=== PATIENT | female | born 1980 | race Two or more races ===

== ENCOUNTER 2020-07-05 10:49 | Inpatient (IN) | payer SELFPAY ==
[~2020-07-05] VITALS: Ht 154.9 cm; Wt 61.9 kg
[2020-07-05] MEDS ORDERED: cefTRIAXone IV Push 1 GM VIAL. IVP ONE ×3 (12:15→23:48)
[2020-07-05] MEDS ORDERED: IV NORMAL SALINE 1000ML BAG 1,000 ML IV SCH ×2 (12:15→16:45)
[2020-07-05 12:37] LABS: BILIRUBIN,URINE SMALL (NEG); CLARITY,URINE CLEAR; COLOR,URINE AMBER; NITRITE,URINE NEGATIVE (NEG); PROTEIN,URINE 30 mg/dL (NEG-TRACE)
[2020-07-05 12:41] LABS: CALCIUM 8.5 mg/dL (8.5-10.1); CREATININE 1.3 mg/dL (0.6-1.0); GFR 45.6; POTASSIUM 3.3 mmol/L (3.5-5.1)
[2020-07-05 12:47] LABS: ALBUMIN 3.2 g/dL (3.4-5.0); ALBUMIN/GLOBULIN RATIO 0.8 (1.0-1.7); TOTAL BILIRUBIN 1.6 mg/dL (0.2-1.0)
[2020-07-05 12:56] LABS: BACTERIA,URINE FEW /HPF (0-FEW); WBC,URINE >40 /HPF (0-4)
[2020-07-05 13:01] LABS: BASO # 0.2 x10^3/uL (0.0-0.2); BASO % 1 % (0-3); EOS % 0 % (0-3); HEMATOCRIT 29.7 % (36.0-47.0); HEMOGLOBIN 9.7 g/dL (12.0-15.5); LYMPH # 0.7 x10^3/uL (1.0-4.8); LYMPH % 3 % (24-48); MEAN CORPUSCULAR HEMOGLOBIN 26 pg (25-35); MEAN CORPUSCULAR HGB CONC 33 g/dL (31-37); MEAN CORPUSCULAR VOLUME 80 fL (79-100); MONO # 2.5 x10^3/uL (0.0-1.1); MONO % 9 % (0-9); NEUT # 23.4 x10^3/uL (1.8-7.7); NEUT % 87 % (31-73); PLATELET COUNT 254 x10^3/uL (140-400); RED BLOOD COUNT 3.69 x10^6/uL (3.50-5.40); RED CELL DISTRIBUTION WIDTH 16.1 % (11.5-14.5); WHITE BLOOD COUNT 26.7 x10^3/uL (4.0-11.0)
[2020-07-05] MEDS ORDERED: IV NORMAL SALINE 1000ML BAG 1,000 ML IV ONE (13:30)
[2020-07-05 13:40] LABS: U PREG PATIENT NEGATIVE (NEG)
[2020-07-05] MEDS ORDERED: IOHEXOL 240 MG/ML 50ML VIAL. PO ONE (14:00)
--- NOTE | 2020-07-05 14:10 | PHYS DOC ---
Past Medical History Past Medical History: No Pertinent History Past Surgical History: Tubal ligation Smoking Status: Current Some Day Smoker Alcohol Use: None General Adult EDM: Chief Complaint: ABDOMINAL PAIN HPI: HPI: Patient is a 39 year old female who presented to ER due to left-sided flank pain with frequent urination for 10 days. She says she was seen by her doctor somewhere, prescribed Bactrim DS. Patient has taken this medication for 7 days already but did not get any better. Patient complains of more back pain and flank pain so she came in for evaluation. Patient is a Czech speaking, history was taken through [employer]. Review of Systems: Review of Systems: Constitutional: Denies fever or chills. [] Eyes: Denies change in visual acuity. [] HENT: Denies nasal congestion or sore throat. [] Respiratory: Denies cough or shortness of breath. [] Cardiovascular: Denies chest pain or edema. [] GI: Positive for abdominal pain, no nausea vomiting, no diarrhea : Positive for urinary frequency and urgency, flank pain. [] Musculoskeletal: Positive for left-sided back pain. [] Integument: Denies rash. [] Neurologic: Denies headache, focal weakness or sensory changes. [] Endocrine: Denies polyuria or polydipsia. [] Lymphatic: Denies swollen glands. [] Psychiatric: Denies depression or anxiety. [] Heart Score: C/O Chest Pain: N/A Risk Factors: Risk Factors: DM, Current or recent (<one month) smoker, HTN, HLP, family history of CAD, obesity. Risk Scores: Score 0 - 3: 2.5% MACE over next 6 weeks - Discharge Home Score 4 - 6: 20.3% MACE over next 6 weeks - Admit for Clinical Observation Score 7 - 10: 72.7% MACE over next 6 weeks - Early Invasive Strategies Current Medications: Current Medications Medications (Trade) Dose Ordered Sig/Lan Start Time Stop Time Status Last Admin Dose Admin Ceftriaxone Sodium (Rocephin) 1 gm 1X ONCE 07/05/20 12:15 07/05/20 12:40 DC 07/05/20 12:59 1 GM Iohexol (Omnipaque 240 Mg/ml) 30 ml 1X ONCE 07/05/20 14:00 07/05/20 14:01 DC Sodium Chloride 1,000 ml @ 1,000 mls/hr 1X ONCE 07/05/20 13:30 07/05/20 14:29 07/05/20 13:44 1,000 MLS/HR Allergies: Allergies: Allergies Coded Allergies Type Severity Reaction Last Updated Verified No Known Drug Allergies 07/05/20 No Physical Exam: PE: Constitutional: Well developed, well nourished, no acute distress, non-toxic appearance. [] HENT: Normocephalic, atraumatic, bilateral external ears normal, oropharynx moist, no oral exudates, nose normal. [] Eyes: PERRLA, EOMI, conjunctiva normal, no discharge. [] Neck: Normal range of motion, no tenderness, supple, no stridor. [] Cardiovascular:Heart rate regular rhythm, no murmur [] Lungs & Thorax: Bilateral breath sounds clear to auscultation [] Abdomen: Bowel sounds normal, soft, no tenderness, no masses, no pulsatile masses. [] Skin: Warm, dry, no erythema, no rash. [] Back: No tenderness, no CVA tenderness. [] Extremities: No tenderness, no cyanosis, no clubbing, ROM intact, no edema. [] Neurologic: Alert and oriented X 3, normal motor function, normal sensory function, no focal deficits noted. [] Psychologic: Affect normal, judgement normal, mood normal. [] Current Patient Data: Labs: Laboratory Tests Test 07/05/20 12:17 07/05/20 12:20 White Blood Count 26.7 x10^3/uL (4.0-11.0) H Red Blood Count 3.69 x10^6/uL (3.50-5.40) Hemoglobin 9.7 g/dL (12.0-15.5) L Hematocrit 29.7 % (36.0-47.0) L Mean Corpuscular Volume 80 fL (79-100) Mean Corpuscular Hemoglobin 26 pg (25-35) Mean Corpuscular Hemoglobin Concent 33 g/dL (31-37) Red Cell Distribution Width 16.1 % (11.5-14.5) H Platelet Count 254 x10^3/uL (140-400) Neutrophils (%) (Auto) 87 % (31-73) H Lymphocytes (%) (Auto) 3 % (24-48) L Monocytes (%) (Auto) 9 % (0-9) Eosinophils (%) (Auto) 0 % (0-3) Basophils (%) (Auto) 1 % (0-3) Neutrophils # (Auto) 23.4 x10^3/uL (1.8-7.7) H Lymphocytes # (Auto) 0.7 x10^3/uL (1.0-4.8) L Monocytes # (Auto) 2.5 x10^3/uL (0.0-1.1) H Eosinophils # (Auto) 0.0 x10^3/uL (0.0-0.7) Basophils # (Auto) 0.2 x10^3/uL (0.0-0.2) Platelet Estimate Pending Sodium Level 134 mmol/L (136-145) L Potassium Level 3.3 mmol/L (3.5-5.1) L Chloride Level 102 mmol/L (98-107) Carbon Dioxide Level 22 mmol/L (21-32) Anion Gap 10 (6-14) Blood Urea Nitrogen 14 mg/dL (7-20) Creatinine 1.3 mg/dL (0.6-1.0) H Estimated GFR (Cockcroft-Gault) 45.6 BUN/Creatinine Ratio 11 (6-20) Glucose Level 106 mg/dL (70-99) H Calcium Level 8.5 mg/dL (8.5-10.1) Total Bilirubin 1.6 mg/dL (0.2-1.0) H Aspartate Amino Transferase (AST) 39 U/L (15-37) H Alanine Aminotransferase (ALT) 77 U/L (14-59) H Alkaline Phosphatase 139 U/L (46-116) H Total Protein 7.0 g/dL (6.4-8.2) Albumin 3.2 g/dL (3.4-5.0) L Albumin/Globulin Ratio 0.8 (1.0-1.7) L Lipase 44 U/L (73-393) L Urine Collection Type Unknown Urine Color Yadira Urine Clarity Clear Urine pH 6.0 (<5.0-8.0) Urine Specific [place] 1.010 (1.000-1.030) Urine Protein 30 mg/dL (NEG-TRACE) Urine Glucose (UA) Negative mg/dL (NEG) Urine Ketones (Stick) Negative mg/dL (NEG) Urine Blood Large (NEG) Urine Nitrite Negative (NEG) Urine Bilirubin Small (NEG) Urine Urobilinogen Dipstick 1.0 mg/dL (0.2 mg/dL) Urine Leukocyte Esterase Large (NEG) Urine RBC 3-5 /HPF (0-2) Urine WBC >40 /HPF (0-4) Urine Squamous Epithelial Cells Mod /LPF Urine Bacteria Few /HPF (0-FEW) Urine Test Negative (NEG) Laboratory Tests 07/05/20 12:17 Laboratory Tests 07/05/20 12:17 Vital Signs: Vital Signs Date Time Temp Pulse Resp B/P (MAP) Pulse Ox O2 Delivery O2 Flow Rate FiO2 07/05/20 13:32 92 18 76/45 (55) 100 07/05/20 12:24 98.4 98.4 07/05/20 11:48 Room Air EKG: EKG: [] Radiology/Procedures: Radiology/Procedures: [facility] [address] [place], [place] [id number] IMAGING REPORT Signed PATIENT: CRISTIANA NICE ACCOUNT: [id number] : 1980 LOCATION: ER AGE: 39 SEX: F EXAM STATUS: REG ER ORD. PHYSICIAN: SAMI MOY DO REASON: flank pain, OMNI 240 PO 30 MLS PROCEDURE: CT ABD PEL W/ORAL CONTRST ONLY CT abdomen and pelvis with oral contrast only. HISTORY: Flank pain. PQRS statement: CT scans at this facility use dose reduction including either automated exposure control, iterative reconstructions, and /or weight based radiation dosing via mA and kV modification when appropriate to reduce radiation dose to as low as reasonably achievable. Abdomen findings: Asymmetric atelectasis left lower lobe as well as some nodular linear densities and groundglass density at the posterior basal left lower lobe adjacent diaphragm from atelectasis or perhaps early pneumonia. Gallbladder packed with gallstones. Adrenals, spleen, pancreas, liver and right kidney are unremarkable. Left kidney is mildly atrophic. There is a 2 mm left renal lower pole calculus. There is mild left perinephric edema and peripelvic and periureteral edema, no obstructive urinary calculi. Left kidney may be mildly atrophic. Appendix is negative. No obstruction or inflammation the GI tract. There is mild left periaortic adenopathy adjacent of the renal vessels measuring up to 1.5 cm. No abdominal free fluid. Pelvis findings: Uterus somewhat prominent in size. At the left adnexa there is a 2.5 cm round soft tissue density is possible this represents the ovary although this is asymmetrically larger and an underlying mass cannot be excluded. No bladder calculi. Rectum and bones are unremarkable. IMPRESSION: 1. Left perinephric and renal edema as well as peripelvic and periureteral edema. No significant hydronephrosis. This may indicate pyelonephritis. No obstructing urinary calculus evident. Mild retroperitoneal adenopathy adjacent of the left renal vessels may be reactive measuring up to 1.5 cm in size. Attention on follow-up may be of benefit to document that this resolves. 2. 2 mm nonobstructing left renal pelvis. 3. Asymmetric left lower lobe posterior basilar opacity adjacent of the diaphragm may be asymmetric atelectasis versus early lobar pneumonia. Follow-up chest imaging in 3 months is advised to document this resolves. 4. Cholelithiasis. 5. Asymmetric 2.5 cm round soft tissue density left adnexa could be asymmetric positioning of the ovary versus an underlying mass. This could be further assessed with pelvic sonography. 6. Appendix is negative. Electronically signed by: Deidre Medina MD (07/05/2020 3:28 PM) [id number] DICTATED and SIGNED BY: DEIDRE MEDINA MD DATE: 07/05/20 [id number] 0 Course & Med Decision Making: Course & Med Decision Making Pertinent Labs and Imaging studies reviewed. (See chart for details) Patient is a 39-year-old female who presented to ER due to flank pain with frequency of urination for 10 days. Patient was found to have acute pyelonephritis. Patient was given IV fluid and IV Rocephin in ER, patient will be admitted to hospital for further evaluation and treatment, discussed with the hospitalist on-call Dr. Saenz who agreed to meet the patient. Dragon Disclaimer: Sherin Disclaimer: This electronic medical record was generated, in whole or in part, using a voice recognition dictation system. Departure Departure Impression: Primary Impression: Acute pyelonephritis Disposition: ADMITTED INPATIENT Admitting Physician: [facility] (Dr. Saenz) Condition: STABLE Referrals: NO PCP (PCP) SAMI MOY DO Jul 05, 2020 14:10
[2020-07-05 14:42] LABS: % BANDS 12 % (0-9); % LYMPHS 1 % (24-48); % MONOS 11 % (0-10); % SEGS 76 % (35-66); PLT ESTIMATE ADEQUATE (ADEQUATE)
--- NOTE | 2020-07-05 15:30 | RAD ---
CT abdomen and pelvis with oral contrast only. HISTORY: Flank pain. PQRS statement: CT scans at this facility use dose reduction including either automated exposure cont rol, iterative reconstructions, and /or weight based radiation dosing via mA and kV modification when appropriate to reduce radiation dose to as low as reasonably achievable. Abdomen findings: Asymmetric atelectasis left lower lobe as well as some nodular linear densities and groundglass density at the posterior basal left lower lobe adjacent diaphragm from atelectasis or pe rhaps early pneumonia. Gallbladder packed with gallstones. Adrenals, spleen, pancreas, liver and righ t kidney are unremarkable. Left kidney is mildly atrophic. There is a 2 mm left renal lower pole calc ulus. There is mild left perinephric edema and peripelvic and periureteral edema, no obstructive urin ricardo calculi. Left kidney may be mildly atrophic. Appendix is negative. No obstruction or inflammation the GI tract. There is mild left periaortic adenopathy adjacent of the renal vessels measuring up to 1.5 cm. No abdominal free fluid. Pelvis findings: Uterus somewhat prominent in size. At the left adnexa there is a 2.5 cm round soft t issue density is possible this represents the ovary although this is asymmetrically larger and an und erlying mass cannot be excluded. No bladder calculi. Rectum and bones are unremarkable. IMPRESSION: 1. Left perinephric and renal edema as well as peripelvic and periureteral edema. No significant hydr onephrosis. This may indicate pyelonephritis. No obstructing urinary calculus evident. Mild retroperi toneal adenopathy adjacent of the left renal vessels may be reactive measuring up to 1.5 cm in size. Attention on follow-up may be of benefit to document that this resolves. 2. 2 mm nonobstructing left renal pelvis. 3. Asymmetric left lower lobe posterior basilar opacity adjacent of the diaphragm may be asymmetric a telectasis versus early lobar pneumonia. Follow-up chest imaging in 3 months is advised to document t his resolves. 4. Cholelithiasis. 5. Asymmetric 2.5 cm round soft tissue density left adnexa could be asymmetric positioning of the ova ry versus an underlying mass. This could be further assessed with pelvic sonography. 6. Appendix is negative. Electronically signed by: Joaquín Medina MD (07/05/2020 3:28 PM) [id number]
[2020-07-05] MEDS ORDERED: MORPHINE SULFATE 4 MG/ML VIAL. IV ONE (15:45)
[2020-07-05] MEDS ORDERED: KETOROLAC 15 MG/ML VIAL. IVP ONE (16:30)
[2020-07-05] MEDS ORDERED: ONDANSETRON PF 4 MG/2 ML VIAL. IV PRN (16:45)
[2020-07-05] MEDS ORDERED: MORPHINE SULFATE 2 MG/ML VIAL. IV PRN (16:45)
--- NOTE | 2020-07-05 18:08 | PDOC1 ---
History and Physical Date of Admission Date of Admission DATE: 07/05/20 TIME: 18:07 Identification/Chief Complaint Chief Complaint flank pain, chills x 36 hrs History of Present Illness History of Present Illness 39 year old female, who presented to ER due to left-sided flank pain with frequent urination for 10 days. she was seen by her doctor prescribed Bactrim DS. ct c/w acute pyelo, wbc 26.7 pos cva tenderness left lower lobe posterior basilar opacity adjacent of the diaphragm may be asymmetric atelectasis versus early lobar pneumonia. on ct Patient has taken this medication for 7 days did not get any better. //complains of more back pain and flank pain Mongolian speaking, history was taken through [employer]. Past Medical History Past Medical History Past Medical History Past Medical History: No Pertinent History Past Surgical History: Tubal ligation Smoking Status: Current Some Day Smoker Alcohol Use: None FHX COPD Family History Family History: Chronic Bronchitis, Hypertension Social History Smoke: <1 pack per day ALCOHOL: occassional Drugs: None Current Problem List Problem List Problems Medical Problems: (1) Acute pyelonephritis Status: Acute Current Medications Current Medications Current Medications Sodium Chloride 1,000 ml @ 1,000 mls/hr Q1H IV Last administered on 07/05/20at 13:00; Start 07/05/20 at 12:15; Stop 07/05/20 at 13:14; Status DC Ceftriaxone Sodium (Rocephin) 1 gm 1X ONCE IVP Last administered on 07/05/20at 12:59; Start 07/05/20 at 12:15; Stop 07/05/20 at 12:40; Status DC Sodium Chloride 1,000 ml @ 1,000 mls/hr 1X ONCE IV Last administered on 07/05/20at 13:44; Start 07/05/20 at 13:30; Stop 07/05/20 at 14:29; Status DC Iohexol (Omnipaque 240 Mg/ml) 30 ml 1X ONCE PO Last administered on 07/05/20at 14:40; Start 07/05/20 at 14:00; Stop 07/05/20 at 14:01; Status DC Morphine Sulfate (Morphine Sulfate) 4 mg 1X ONCE IV Last administered on 07/05/20at 15:52; Start 07/05/20 at 15:45; Stop 07/05/20 at 15:46; Status DC Ketorolac Tromethamine (Toradol 15mg Vial) 15 mg 1X ONCE IVP Last administered on 07/05/20at 17:39; Start 07/05/20 at 16:30; Stop 07/05/20 at 16:31; Status DC Ondansetron HCl (Zofran) 4 mg PRN Q8HRS PRN IV NAUSEA/VOMITING; Start 07/05/20 at 16:45; Stop 07/06/20 at 16:44 Morphine Sulfate (Morphine Sulfate) 2 mg PRN Q2HR PRN IV PAIN; Start 07/05/20 at 16:45; Stop 07/06/20 at 16:44 Sodium Chloride 1,000 ml @ 100 mls/hr Q10H IV ; Start 07/05/20 at 16:45; Stop 07/06/20 at 16:44 Ceftriaxone Sodium (Rocephin) 1 gm Q24H IVP ; Start 07/06/20 at 12:00 Allergies Allergies: Coded Allergies: No Known Drug Allergies (Unverified , 07/05/20) ROS General: YES: Chills, Fatigue PSYCHOLOGICAL ROS: YES: Anxiety; No: Behavioral Disorder, Concentration difficultie, Decreased libido, Depression, Disorientation, Hallucinations, Hostility, Irritablity, Memory difficulties, Mood Swings, Obsessive thoughts, Physical abuse, Sexual abuse, S leep disturbances, Suicidal ideation, Other Eyes: No Blurry vision, No Decreased vision, No Double vision, No Dry eyes, No Excessive tearing, No Eye Pain, No Itchy Eyes, No Loss of vision, No Photophobia, No Scotomata, No Uses contacts, No Uses glasses, No Other HEENT: No: Heacaches, Visual Changes, Hearing change, Nasal congestion, Nasal discharge, Oral lesions, Sinus pain, Sore Throat, Epistaxis, Sneezing, Snoring, Tinnitus, Vertigo, Vocal changes, Other ALLERGY AND IMMUNOLOGY: No: Hives, Insect Bite Sensitivity, Itchy/Watery Eyes, Nasal Congestion, Post Nasal Drip, Seasonal Allergies, Other Hematological and Lymphatic: No: Bleeding Problems, Blood Clots, Blood Transfus ions, Brusing, Night Sweats, Pallor, Swollen Lymph Nodes, Other ENDOCRINE: No: Breast Changes, Galactorrhea, Hair Pattern Changes, Hot Flashes, Malaise/lethargy, Mood Swings, Palpitations, Polydipsia/polyuria, Skin Changes, Temperature Intolerance, Unexpected Weight Changes, Other Breast: No New/Changing Breast Lumps, No Nipple changes, No Nipple discharge, No Other Respiratory: No: Cough, Hemoptysis, Orthopnea, Pleuritic Pain, Shortness of b reath, SOB with excertion, Sputum Changes, Stridor, Tachypnea, Wheezing, Other Cardiovascular: No Chest Pain, No Palpitations, No Orthopnea, No Paroxysmal Noc. Dyspnea, No Edema, No Lt Headedness, No Other Gastrointestinal: Yes Nausea; No Vomiting, No Abdominal Pain, No Diarrhea, No Constipation, No Melena, No Hematochezia, No Other Genitourinary: YES Dysuria, YES Urgency, YES Flank Pain Musculoskeletal: No Gait Disturbance, No Joint Pain, No Joint Stiffness, No Joint Swelling, No Muscle Pain, No Muscular Weakness, No Pain In:, No Swelling In:, No Other Neurological: No Behavorial Changes, No Bowel/Bladder ControlChng, No Confusion, No Dizziness, No Gait Disturbance, No Headaches, No Impaired Coord/balance, No Memory Loss, No Numbness/Tingling, No Seizures, No Speech Problems, No Tremors, No Visual Changes, No Weakness, No Other Skin: No Dry Skin, No Eczema, No Hair Changes, No Lumps, No Mole Changes, No Mottling, No Nail Changes, No Pruritus, No Rash, No Skin Lesion Changes, No Other, No Acne Physical Exam General: Alert, Oriented X3, Cooperative, No acute distress, mild distress HEENT: PERRLA, EOMI, Mucous membr. moist/pink Lungs: Clear to auscultation, Normal air movement Heart: RRR Breasts: Not examined Abdomen: Normal bowel sounds, Soft, Other (MILD TENDERNESS) Rectal Exam: not examined PELVIC: Examination not indicated Extremities: No clubbing, No cyanosis, No edema Neuro: Normal speech, Cranial nerves 3-12 NL Psych/Mental Status: Mental status NL, Mood NL Vitals Vitals Vital Signs Date Time Temp Pulse Resp B/P (MAP) Pulse Ox O2 Delivery O2 Flow Rate FiO2 07/05/20 16:32 110 18 109/58 (75) 99 07/05/20 14:02 Room Air 07/05/20 12:24 98.4 98.4 Labs Labs Laboratory Tests Test 07/05/20 12:17 07/05/20 12:20 07/05/20 14:17 White Blood Count 26.7 x10^3/uL (4.0-11.0) Red Blood Count 3.69 x10^6/uL (3.50-5.40) Hemoglobin 9.7 g/dL (12.0-15.5) Hematocrit 29.7 % (36.0-47.0) Mean Corpuscular Volume 80 fL (79-100) Mean Corpuscular Hemoglobin 26 pg (25-35) Mean Corpuscular Hemoglobin Concent 33 g/dL (31-37) Red Cell Distribution Width 16.1 % (11.5-14.5) Platelet Count 254 x10^3/uL (140-400) Neutrophils (%) (Auto) 87 % (31-73) Lymphocytes (%) (Auto) 3 % (24-48) Monocytes (%) (Auto) 9 % (0-9) Eosinophils (%) (Auto) 0 % (0-3) Basophils (%) (Auto) 1 % (0-3) Neutrophils # (Auto) 23.4 x10^3/uL (1.8-7.7) Lymphocytes # (Auto) 0.7 x10^3/uL (1.0-4.8) Monocytes # (Auto) 2.5 x10^3/uL (0.0-1.1) Eosinophils # (Auto) 0.0 x10^3/uL (0.0-0.7) Basophils # (Auto) 0.2 x10^3/uL (0.0-0.2) Segmented Neutrophils % 76 % (35-66) Band Neutrophils % 12 % (0-9) Lymphocytes % 1 % (24-48) Monocytes % 11 % (0-10) Platelet Estimate Adequate (ADEQUATE) Sodium Level 134 mmol/L (136-145) Potassium Level 3.3 mmol/L (3.5-5.1) Chloride Level 102 mmol/L (98-107) Carbon Dioxide Level 22 mmol/L (21-32) Anion Gap 10 (6-14) Blood Urea Nitrogen 14 mg/dL (7-20) Creatinine 1.3 mg/dL (0.6-1.0) Estimated GFR (Cockcroft-Gault) 45.6 BUN/Creatinine Ratio 11 (6-20) Glucose Level 106 mg/dL (70-99) Calcium Level 8.5 mg/dL (8.5-10.1) Total Bilirubin 1.6 mg/dL (0.2-1.0) Aspartate Amino Transf (AST/SGOT) 39 U/L (15-37) Alanine Aminotransferase (ALT/SGPT) 77 U/L (14-59) Alkaline Phosphatase 139 U/L (46-116) Total Protein 7.0 g/dL (6.4-8.2) Albumin 3.2 g/dL (3.4-5.0) Albumin/Globulin Ratio 0.8 (1.0-1.7) Lipase 44 U/L (73-393) Urine Collection Type Unknown Urine Color Yadira Urine Clarity Clear Urine pH 6.0 (<5.0-8.0) Urine Specific [place] 1.010 (1.000-1.030) Urine Protein 30 mg/dL (NEG-TRACE) Urine Glucose (UA) Negative mg/dL (NEG) Urine Ketones (Stick) Negative mg/dL (NEG) Urine Blood Large (NEG) Urine Nitrite Negative (NEG) Urine Bilirubin Small (NEG) Urine Urobilinogen Dipstick 1.0 mg/dL (0.2 mg/dL) Urine Leukocyte Esterase Large (NEG) Urine RBC 3-5 /HPF (0-2) Urine WBC >40 /HPF (0-4) Urine Squamous Epithelial Cells Mod /LPF Urine Bacteria Few /HPF (0-FEW) Urine Test Negative (NEG) Lactic Acid Level 1.1 mmol/L (0.4-2.0) Laboratory Tests Test 07/05/20 12:17 07/05/20 12:20 07/05/20 14:17 White Blood Count 26.7 x10^3/uL (4.0-11.0) Red Blood Count 3.69 x10^6/uL (3.50-5.40) Hemoglobin 9.7 g/dL (12.0-15.5) Hematocrit 29.7 % (36.0-47.0) Mean Corpuscular Volume 80 fL (79-100) Mean Corpuscular Hemoglobin 26 pg (25-35) Mean Corpuscular Hemoglobin Concent 33 g/dL (31-37) Red Cell Distribution Width 16.1 % (11.5-14.5) Platelet Count 254 x10^3/uL (140-400) Neutrophils (%) (Auto) 87 % (31-73) Lymphocytes (%) (Auto) 3 % (24-48) Monocytes (%) (Auto) 9 % (0-9) Eosinophils (%) (Auto) 0 % (0-3) Basophils (%) (Auto) 1 % (0-3) Neutrophils # (Auto) 23.4 x10^3/uL (1.8-7.7) Lymphocytes # (Auto) 0.7 x10^3/uL (1.0-4.8) Monocytes # (Auto) 2.5 x10^3/uL (0.0-1.1) Eosinophils # (Auto) 0.0 x10^3/uL (0.0-0.7) Basophils # (Auto) 0.2 x10^3/uL (0.0-0.2) Segmented Neutrophils % 76 % (35-66) Band Neutrophils % 12 % (0-9) Lymphocytes % 1 % (24-48) Monocytes % 11 % (0-10) Platelet Estimate Adequate (ADEQUATE) Sodium Level 134 mmol/L (136-145) Potassium Level 3.3 mmol/L (3.5-5.1) Chloride Level 102 mmol/L (98-107) Carbon Dioxide Level 22 mmol/L (21-32) Anion Gap 10 (6-14) Blood Urea Nitrogen 14 mg/dL (7-20) Creatinine 1.3 mg/dL (0.6-1.0) Estimated GFR (Cockcroft-Gault) 45.6 BUN/Creatinine Ratio 11 (6-20) Glucose Level 106 mg/dL (70-99) Calcium Level 8.5 mg/dL (8.5-10.1) Total Bilirubin 1.6 mg/dL (0.2-1.0) Aspartate Amino Transf (AST/SGOT) 39 U/L (15-37) Alanine Aminotransferase (ALT/SGPT) 77 U/L (14-59) Alkaline Phosphatase 139 U/L (46-116) Total Protein 7.0 g/dL (6.4-8.2) Albumin 3.2 g/dL (3.4-5.0) Albumin/Globulin Ratio 0.8 (1.0-1.7) Lipase 44 U/L (73-393) Urine Collection Type Unknown Urine Color Yadira Urine Clarity Clear Urine pH 6.0 (<5.0-8.0) Urine Specific [place] 1.010 (1.000-1.030) Urine Protein 30 mg/dL (NEG-TRACE) Urine Glucose (UA) Negative mg/dL (NEG) Urine Ketones (Stick) Negative mg/dL (NEG) Urine Blood Large (NEG) Urine Nitrite Negative (NEG) Urine Bilirubin Small (NEG) Urine Urobilinogen Dipstick 1.0 mg/dL (0.2 mg/dL) Urine Leukocyte Esterase Large (NEG) Urine RBC 3-5 /HPF (0-2) Urine WBC >40 /HPF (0-4) Urine Squamous Epithelial Cells Mod /LPF Urine Bacteria Few /HPF (0-FEW) Urine Test Negative (NEG) Lactic Acid Level 1.1 mmol/L (0.4-2.0) Images Images PATIENT: CRISTIANA NICE ACCOUNT: [id number] : 1980 LOCATION: ER AGE: 39 SEX: F EXAM STATUS: REG ER ORD. PHYSICIAN: SAMI MOY DO REASON: flank pain, OMNI 240 PO 30 MLS PROCEDURE: CT ABD PEL W/ORAL CONTRST ONLY CT abdomen and pelvis with oral contrast only. HISTORY: Flank pain. PQRS statement: CT scans at this facility use dose reduction including either automated exposure control, iterative reconstructions, and /or weight based radiation dosing via mA and kV modification when appropriate to reduce radiation dose to as low as reasonably achievable. Abdomen findings: Asymmetric atelectasis left lower lobe as well as some nodular linear densities and groundglass density at the posterior basal left lower lobe adjacent diaphragm from atelectasis or perhaps early pneumonia. Gallbladder pac ked with gallstones. Adrenals, spleen, pancreas, liver and right kidney are unremarkable. Left kidney is mildly atrophic. There is a 2 mm left renal lower pole calculus. There is mild left perinephric edema and peripelvic and periureteral edema, no obstructive urinary calculi. Left kidney may be mildly atrophic. Appendix is negative. No obstruction or inflammation the GI tract. The re is mild left periaortic adenopathy adjacent of the renal vessels measuring up to 1.5 cm. No abdominal free fluid. Pelvis findings: Uterus somewhat prominent in size. At the left adnexa there is a 2.5 cm round soft tissue density is possible this represents the ovary although this is asymmetrically larger and an underlying mass cannot be excluded. No bladder calculi. Rectum and bones are unremarkable. IMPRESSION: 1. Left perinephric and renal edema as well as peripelvic and periureteral edema. No significant hydronephrosis. This may indicate pyelonephritis. No obstructing urinary calculus evident. Mild retroperitoneal adenopathy adjacent of the left renal vessels may be reactive measuring up to 1.5 cm in size. Attention on follow-up may be of benefit to document that this resolves. 2. 2 mm nonobstructing left renal pelvis. 3. Asymmetric left lower lobe posterior basilar opacity adjacent of the diaphragm may be asymmetric atelectasis versus early lobar pneumonia. Follow-up chest imaging in 3 months is advised to document this resolves. 4. Cholelithiasis. 5. Asymmetric 2.5 cm round soft tissue density left adnexa could be asymmetric positioning of the ovary versus an underlying mass. This could be further assessed with pelvic sonography. 6. Appendix is negative. Electronically signed by: Deidre Messina MD (07/05/2020 3:28 PM) [id number] DICTATED and SIGNED BY: DEIDRE MESSINA MD DATE: 07/05/20 [id number] 0 VTE Prophylaxis Ordered VTE Prophylaxis Devices: Yes VTE Pharmacological Prophylaxi: Yes Assessment/Plan Assessment/Plan IMPRESSION: 1. Left perinephric and renal edema as well as peripelvic and periureteral edema. No significant hydronephrosis. C/W pyelonephritis. No obstructing urinary calculus evident. Mild retroperitoneal adenopathy adjacent of the left renal vessels may be reactive measuring up to 1.5 cm in size. 2. 2 mm nonobstructing left renal pelvis. 3. Asymmetric left lower lobe posterior basilar opacity adjacent of the diaphragm may be asymmetric atelectasis versus early lobar pneumonia. 4. Cholelithiasis. 5. Asymmetric 2.5 cm round soft tissue density left adnexa could be asymmetric positioning of the ovary versus an underlying mass. PLAN pelvic sonography. 6. SEPSIS DUE TO ACUTE Pyelonephritis 7. hypokalemia on replacement 8. acute renal tubular necrosis/ MAHI 9. NORMOCYTIC ANEMIA 10. Tobacco abuse disorder plan========= admit iv fluids iv antibiotics ROCEPHIN 2 gm iv q 24 hrs blood cultures urine culture dvt prophylaxis abdominal and pelvic sono, consider grab driver consult lactic acid with reflex gi prophylaxis ID CONSULT SEPSIS BUNDLE RENAL CONSULT RE MAHI FE PANEL Justifications for Admission Other Justification ANÍBAL ZIEGLER MD Jul 05, 2020 18:08
[2020-07-05] MEDS ORDERED: ALBUTEROL SULFATE 2.5 MG/3 ML NEBU. NEB PRN (18:30)
[2020-07-05] MEDS ORDERED: ACETAMINOPHEN 650 MG SUPP.RECT. PR PRN (18:30)
[2020-07-05] MEDS ORDERED: SODIUM PHOSPHATES 19/7GM 133 ML ENEMA. PR PRN (18:30)
[2020-07-05] MEDS ORDERED: 0.9 % SODIUM CHLORIDE 10 ML DISP.SYRIN. IV PRN (18:30)
[2020-07-05] MEDS ORDERED: guaiFENesin ORAL 200 MG/10 ML LIQUID. PO PRN (18:30)
[2020-07-05] MEDS ORDERED: MAG HYDROX/ALUMINUM HYD/SIMETH 30 ML ORAL.SUSP PO PRN (18:30)
[2020-07-05] MEDS ORDERED: IV NORMAL SALINE 500ML BAG 500 ML IV PRN (18:30)
[2020-07-05] MEDS ORDERED: DOCUSATE SODIUM 100 MG CAPSULE. PO PRN (18:30)
[2020-07-05] MEDS ORDERED: POTASSIUM BICARB 20 MEQ EFFERVESCENT TABLET. PO ONE ×2 (18:30→23:15)
[2020-07-05] MEDS: IV NORMAL SALINE 1000ML BAG 1,560 ML IV SCH ×6 (19:30→23:30)
[2020-07-05 20:10] VITALS: BP 96/59
[2020-07-05] MEDS: FAMOTIDINE 20 MG/2 ML VIAL IVP SCH (23:04)
[2020-07-05] MEDS: ENOXAPARIN 40 MG/0.4 ML SYRINGE. SQ SCH (23:05)
[2020-07-06] VITALS (8 sets, daily range): BP systolic 92–126; BP diastolic 49–71
[2020-07-06] MEDS: ACETAMINOPHEN 325 MG TABLET. PO PRN ×2 (00:17→23:09)
[2020-07-06] MEDS: IV NORMAL SALINE 1000ML BAG 1,000 ML IV SCH ×4 (00:20→23:36)
[2020-07-06] MEDS: IV NORMAL SALINE 1000ML BAG 1,560 ML IV SCH ×2 (00:30→01:30)
--- NOTE | 2020-07-06 02:25 | NUR ---
Patient admitted to [facility] on 07/05/20 for acute pyelonephritis. Patient trigger positive sepsis screen. Admitting MD aware of sepsis; sepsis bundle ordered as part of admitting orders. Per protocol, admitting MD and ICU nurse were both notified. Patient is alert and oriented x 4. Primary language is Greenlandic. RN utilized the assistance of bilingual RN to communicate with patient and obtain history. RN will continue to monitor patient.
[2020-07-06 04:04] LABS: BASO % 0 % (0-3); EOS % 0 % (0-3); HEMATOCRIT 25.5 % (36.0-47.0); HEMOGLOBIN 8.4 g/dL (12.0-15.5); LYMPH # 0.6 x10^3/uL (1.0-4.8); LYMPH % 3 % (24-48); MEAN CORPUSCULAR HEMOGLOBIN 27 pg (25-35); MEAN CORPUSCULAR HGB CONC 33 g/dL (31-37); MEAN CORPUSCULAR VOLUME 81 fL (79-100); MONO % 9 % (0-9); NEUT # 20.6 x10^3/uL (1.8-7.7); NEUT % 88 % (31-73); PLATELET COUNT 204 x10^3/uL (140-400); RED BLOOD COUNT 3.15 x10^6/uL (3.50-5.40); RED CELL DISTRIBUTION WIDTH 16.5 % (11.5-14.5); WHITE BLOOD COUNT 23.3 x10^3/uL (4.0-11.0)
[2020-07-06 04:24] LABS: D-DIMER 2.63 ug/mlFEU (0.00-0.50)
[2020-07-06 04:35] LABS: ALBUMIN 2.1 g/dL (3.4-5.0); ALBUMIN/GLOBULIN RATIO 0.6 (1.0-1.7); GFR 61.7; POTASSIUM 3.8 mmol/L (3.5-5.1); TOTAL BILIRUBIN 1.4 mg/dL (0.2-1.0); TOTAL PROTEIN 5.5 g/dL (6.4-8.2)
[2020-07-06] MEDS: HYDROmorphone 2 MG/ML VIAL IVP PRN ×3 (04:48→18:55)
[2020-07-06] MEDS: ONDANSETRON PF 4 MG/2 ML VIAL. IV PRN ×2 (06:23→10:50)
[2020-07-06] MEDS ORDERED: POTASSIUM BICARB 20 MEQ EFFERVESCENT TABLET. PO ONE ×2 (06:30)
[2020-07-06] MEDS: FAMOTIDINE 20 MG/2 ML VIAL IVP SCH ×2 (08:43→21:02)
--- NOTE | 2020-07-06 08:54 | PDOC ---
PROGRESS NOTES Date of Service DATE: 07/06/20 TIME: 08:53 Subjective Subjective Initially consulted for acute kidney injury in the setting of diagnosis of pyelonephritis. Creatinine was 1.3 but now down to 1.1. Hence no further renal recommendations since MAHI has resolved. Please call if kidney function worsens Objective Objective Vital Signs Date Time Temp Pulse Resp B/P (MAP) Pulse Ox O2 Delivery O2 Flow Rate FiO2 07/06/20 08:14 97.9 106 16 97/64 (75) 97 Room Air 97.9 Intake and Output 07/06/20 07:00 Intake Total 2000 ml Output Total 400 ml Balance 1600 ml Intake Oral 0 ml IV Total 2000 ml Output Urine Total 400 ml # Voids 3 Assessment Assessment Problems Medical Problems: (1) Acute pyelonephritis Status: Acute Comment Review of Relevant I have reviewed the following items barb (where applicable) has been applied. Labs Laboratory Tests Test 07/05/20 12:17 07/05/20 12:20 07/05/20 14:17 07/06/20 03:50 White Blood Count 26.7 x10^3/uL (4.0-11.0) 23.3 x10^3/uL (4.0-11.0) Red Blood Count 3.69 x10^6/uL (3.50-5.40) 3.15 x10^6/uL (3.50-5.40) Hemoglobin 9.7 g/dL (12.0-15.5) 8.4 g/dL (12.0-15.5) Hematocrit 29.7 % (36.0-47.0) 25.5 % (36.0-47.0) Mean Corpuscular Volume 80 fL (79-100) 81 fL (79-100) Mean Corpuscular Hemoglobin 26 pg (25-35) 27 pg (25-35) Mean Corpuscular Hemoglobin Concent 33 g/dL (31-37) 33 g/dL (31-37) Red Cell Distribution Width 16.1 % (11.5-14.5) 16.5 % (11.5-14.5) Platelet Count 254 x10^3/uL (140-400) 204 x10^3/uL (140-400) Neutrophils (%) (Auto) 87 % (31-73) 88 % (31-73) Lymphocytes (%) (Auto) 3 % (24-48) 3 % (24-48) Monocytes (%) (Auto) 9 % (0-9) 9 % (0-9) Eosinophils (%) (Auto) 0 % (0-3) 0 % (0-3) Basophils (%) (Auto) 1 % (0-3) 0 % (0-3) Neutrophils # (Auto) 23.4 x10^3/uL (1.8-7.7) 20.6 x10^3/uL (1.8-7.7) Lymphocytes # (Auto) 0.7 x10^3/uL (1.0-4.8) 0.6 x10^3/uL (1.0-4.8) Monocytes # (Auto) 2.5 x10^3/uL (0.0-1.1) 2.0 x10^3/uL (0.0-1.1) Eosinophils # (Auto) 0.0 x10^3/uL (0.0-0.7) 0.0 x10^3/uL (0.0-0.7) Basophils # (Auto) 0.2 x10^3/uL (0.0-0.2) 0.0 x10^3/uL (0.0-0.2) Segmented Neutrophils % 76 % (35-66) Band Neutrophils % 12 % (0-9) Lymphocytes % 1 % (24-48) Monocytes % 11 % (0-10) Platelet Estimate Adequate (ADEQUATE) Sodium Level 134 mmol/L (136-145) 143 mmol/L (136-145) Potassium Level 3.3 mmol/L (3.5-5.1) 3.8 mmol/L (3.5-5.1) Chloride Level 102 mmol/L (98-107) 111 mmol/L (98-107) Carbon Dioxide Level 22 mmol/L (21-32) 16 mmol/L (21-32) Anion Gap 10 (6-14) 16 (6-14) Blood Urea Nitrogen 14 mg/dL (7-20) 9 mg/dL (7-20) Creatinine 1.3 mg/dL (0.6-1.0) 1.0 mg/dL (0.6-1.0) Estimated GFR (Cockcroft-Gault) 45.6 61.7 BUN/Creatinine Ratio 11 (6-20) 9 (6-20) Glucose Level 106 mg/dL (70-99) 72 mg/dL (70-99) Calcium Level 8.5 mg/dL (8.5-10.1) 7.0 mg/dL (8.5-10.1) Total Bilirubin 1.6 mg/dL (0.2-1.0) 1.4 mg/dL (0.2-1.0) Aspartate Amino Transf (AST/SGOT) 39 U/L (15-37) 21 U/L (15-37) Alanine Aminotransferase (ALT/SGPT) 77 U/L (14-59) 50 U/L (14-59) Alkaline Phosphatase 139 U/L (46-116) 129 U/L (46-116) Total Protein 7.0 g/dL (6.4-8.2) 5.5 g/dL (6.4-8.2) Albumin 3.2 g/dL (3.4-5.0) 2.1 g/dL (3.4-5.0) Albumin/Globulin Ratio 0.8 (1.0-1.7) 0.6 (1.0-1.7) Lipase 44 U/L (73-393) Procalcitonin 3.58 ng/mL (0.00-0.10) Urine Collection Type Unknown Urine Color Yadira Urine Clarity Clear Urine pH 6.0 (<5.0-8.0) Urine Specific [place] 1.010 (1.000-1.030) Urine Protein 30 mg/dL (NEG-TRACE) Urine Glucose (UA) Negative mg/dL (NEG) Urine Ketones (Stick) Negative mg/dL (NEG) Urine Blood Large (NEG) Urine Nitrite Negative (NEG) Urine Bilirubin Small (NEG) Urine Urobilinogen Dipstick 1.0 mg/dL (0.2 mg/dL) Urine Leukocyte Esterase Large (NEG) Urine RBC 3-5 /HPF (0-2) Urine WBC >40 /HPF (0-4) Urine Squamous Epithelial Cells Mod /LPF Urine Bacteria Few /HPF (0-FEW) Urine Test Negative (NEG) Lactic Acid Level 1.1 mmol/L (0.4-2.0) 0.9 mmol/L (0.4-2.0) Prothrombin Time 17.0 SEC (11.7-14.0) Prothromb Time International Ratio 1.4 (0.8-1.1) Activated Partial Thromboplast Time 47 SEC (24-38) Fibrinogen 686 mg/dL (200-440) D-Dimer (Taina) 2.63 ug/mlFEU (0.00-0.50) Laboratory Tests Test 07/05/20 12:17 07/05/20 12:20 07/05/20 14:17 07/06/20 03:50 White Blood Count 26.7 x10^3/uL (4.0-11.0) 23.3 x10^3/uL (4.0-11.0) Red Blood Count 3.69 x10^6/uL (3.50-5.40) 3.15 x10^6/uL (3.50-5.40) Hemoglobin 9.7 g/dL (12.0-15.5) 8.4 g/dL (12.0-15.5) Hematocrit 29.7 % (36.0-47.0) 25.5 % (36.0-47.0) Mean Corpuscular Volume 80 fL (79-100) 81 fL (79-100) Mean Corpuscular Hemoglobin 26 pg (25-35) 27 pg (25-35) Mean Corpuscular Hemoglobin Concent 33 g/dL (31-37) 33 g/dL (31-37) Red Cell Distribution Width 16.1 % (11.5-14.5) 16.5 % (11.5-14.5) Platelet Count 254 x10^3/uL (140-400) 204 x10^3/uL (140-400) Neutrophils (%) (Auto) 87 % (31-73) 88 % (31-73) Lymphocytes (%) (Auto) 3 % (24-48) 3 % (24-48) Monocytes (%) (Auto) 9 % (0-9) 9 % (0-9) Eosinophils (%) (Auto) 0 % (0-3) 0 % (0-3) Basophils (%) (Auto) 1 % (0-3) 0 % (0-3) Neutrophils # (Auto) 23.4 x10^3/uL (1.8-7.7) 20.6 x10^3/uL (1.8-7.7) Lymphocytes # (Auto) 0.7 x10^3/uL (1.0-4.8) 0.6 x10^3/uL (1.0-4.8) Monocytes # (Auto) 2.5 x10^3/uL (0.0-1.1) 2.0 x10^3/uL (0.0-1.1) Eosinophils # (Auto) 0.0 x10^3/uL (0.0-0.7) 0.0 x10^3/uL (0.0-0.7) Basophils # (Auto) 0.2 x10^3/uL (0.0-0.2) 0.0 x10^3/uL (0.0-0.2) Segmented Neutrophils % 76 % (35-66) Band Neutrophils % 12 % (0-9) Lymphocytes % 1 % (24-48) Monocytes % 11 % (0-10) Platelet Estimate Adequate (ADEQUATE) Sodium Level 134 mmol/L (136-145) 143 mmol/L (136-145) Potassium Level 3.3 mmol/L (3.5-5.1) 3.8 mmol/L (3.5-5.1) Chloride Level 102 mmol/L (98-107) 111 mmol/L (98-107) Carbon Dioxide Level 22 mmol/L (21-32) 16 mmol/L (21-32) Anion Gap 10 (6-14) 16 (6-14) Blood Urea Nitrogen 14 mg/dL (7-20) 9 mg/dL (7-20) Creatinine 1.3 mg/dL (0.6-1.0) 1.0 mg/dL (0.6-1.0) Estimated GFR (Cockcroft-Gault) 45.6 61.7 BUN/Creatinine Ratio 11 (6-20) 9 (6-20) Glucose Level 106 mg/dL (70-99) 72 mg/dL (70-99) Calcium Level 8.5 mg/dL (8.5-10.1) 7.0 mg/dL (8.5-10.1) Total Bilirubin 1.6 mg/dL (0.2-1.0) 1.4 mg/dL (0.2-1.0) Aspartate Amino Transf (AST/SGOT) 39 U/L (15-37) 21 U/L (15-37) Alanine Aminotransferase (ALT/SGPT) 77 U/L (14-59) 50 U/L (14-59) Alkaline Phosphatase 139 U/L (46-116) 129 U/L (46-116) Total Protein 7.0 g/dL (6.4-8.2) 5.5 g/dL (6.4-8.2) Albumin 3.2 g/dL (3.4-5.0) 2.1 g/dL (3.4-5.0) Albumin/Globulin Ratio 0.8 (1.0-1.7) 0.6 (1.0-1.7) Lipase 44 U/L (73-393) Procalcitonin 3.58 ng/mL (0.00-0.10) Urine Collection Type Unknown Urine Color Yadira Urine Clarity Clear Urine pH 6.0 (<5.0-8.0) Urine Specific [place] 1.010 (1.000-1.030) Urine Protein 30 mg/dL (NEG-TRACE) Urine Glucose (UA) Negative mg/dL (NEG) Urine Ketones (Stick) Negative mg/dL (NEG) Urine Blood Large (NEG) Urine Nitrite Negative (NEG) Urine Bilirubin Small (NEG) Urine Urobilinogen Dipstick 1.0 mg/dL (0.2 mg/dL) Urine Leukocyte Esterase Large (NEG) Urine RBC 3-5 /HPF (0-2) Urine WBC >40 /HPF (0-4) Urine Squamous Epithelial Cells Mod /LPF Urine Bacteria Few /HPF (0-FEW) Urine Test Negative (NEG) Lactic Acid Level 1.1 mmol/L (0.4-2.0) 0.9 mmol/L (0.4-2.0) Prothrombin Time 17.0 SEC (11.7-14.0) Prothromb Time International Ratio 1.4 (0.8-1.1) Activated Partial Thromboplast Time 47 SEC (24-38) Fibrinogen 686 mg/dL (200-440) D-Dimer ([place]a) 2.63 ug/mlFEU (0.00-0.50) Medications Current Medications Sodium Chloride 1,000 ml @ 1,000 mls/hr Q1H IV Last administered on 07/05/20at 13:00; Start 07/05/20 at 12:15; Stop 07/05/20 at 13:14; Status DC Ceftriaxone Sodium (Rocephin) 1 gm 1X ONCE IVP Last administered on 07/05/20at 12:59; Start 07/05/20 at 12:15; Stop 07/05/20 at 12:40; Status DC Sodium Chloride 1,000 ml @ 1,000 mls/hr 1X ONCE IV Last administered on 07/05/20at 13:44; Start 07/05/20 at 13:30; Stop 07/05/20 at 14:29; Status DC Iohexol (Omnipaque 240 Mg/ml) 30 ml 1X ONCE PO Last administered on 07/05/20at 14:40; Start 07/05/20 at 14:00; Stop 07/05/20 at 14:01; Status DC Morphine Sulfate (Morphine Sulfate) 4 mg 1X ONCE IV Last administered on 07/05/20at 15:52; Start 07/05/20 at 15:45; Stop 07/05/20 at 15:46; Status DC Ketorolac Tromethamine (Toradol 15mg Vial) 15 mg 1X ONCE IVP Last administered on 07/05/20at 17:39; Start 07/05/20 at 16:30; Stop 07/05/20 at 16:31; Status DC Ondansetron HCl (Zofran) 4 mg PRN Q8HRS PRN IV NAUSEA/VOMITING; Start 07/05/20 at 16:45; Stop 07/06/20 at 16:44 Morphine Sulfate (Morphine Sulfate) 2 mg PRN Q2HR PRN IV PAIN; Start 07/05/20 at 16:45; Stop 07/05/20 at 18:34; Status DC Sodium Chloride 1,000 ml @ 100 mls/hr Q10H IV ; Start 07/05/20 at 16:45; Stop 07/05/20 at 23:51; Status DC Ceftriaxone Sodium (Rocephin) 1 gm Q24H IVP ; Start 07/06/20 at 12:00; Stop 07/05/20 at 18:14; Status DC Ceftriaxone Sodium (Rocephin) 2 gm Q24H IVP ; Start 07/06/20 at 13:00 Ceftriaxone Sodium (Rocephin) 1 gm 1X ONCE IVP ; Start 07/05/20 at 18:30; Stop 07/05/20 at 18:31; Status Cancel Sodium Chloride 1,560 ml @ 1,560 mls/hr Q1H IV Last administered on 07/05/20at 22:53; Start 07/05/20 at 18:30; Stop 07/06/20 at 02:00; Status DC Sodium Chloride 500 ml @ 1,000 mls/hr PRN Q30MIN PRN IV SEE COMMENTS; Start 07/05/20 at 18:30 Potassium Bicarbonate (Potassium Effervescent Tablet) 40 meq 1X ONCE PO ; Start 07/05/20 at 18:30; Stop 07/05/20 at 18:31; Status Cancel Potassium Bicarbonate (Potassium Effervescent Tablet) 20 meq 1X ONCE PO ; Start 07/06/20 at 06:30; Stop 07/05/20 at 23:00; Status DC Sodium Chloride (Normal Saline Flush) 3 ml QSHIFT PRN IV AFTER MEDS AND BLOOD DRAWS; Start 07/05/20 at 18:30 Sodium Chloride 1,000 ml @ 100 mls/hr Q10H IV Last administered on 07/06/20at 00:20; Start 07/05/20 at 18:30 Ondansetron HCl (Zofran) 4 mg PRN Q4HRS PRN IV NAUSEA/VOMITING Last administered on 07/06/20at 06:23; Start 07/05/20 at 18:30 Acetaminophen (Tylenol) 650 mg PRN Q4HRS PRN PO TEMP OVER 100.4F OR MILD PAIN Last administered on 07/06/20at 00:17; Start 07/05/20 at 18:30 Acetaminophen (Tylenol Supp) 650 mg PRN Q4HRS PRN LA TEMP OVER 100.4F OR MILD PAIN; Start 07/05/20 at 18:30 Al Hydroxide/Mg Hydroxide (Mylanta Plus Xs) 30 ml PRN DAILY PRN PO HEARTBURN / GAS; Start 07/05/20 at 18:30 Sodium Monofluorophosphate (Fleet Adult) 133 ml PRN DAILY PRN LA CONSTIPATION; Start 07/05/20 at 18:30 Docusate Sodium (Colace) 100 mg PRN BID PRN PO HARD STOOLS; Start 07/05/20 at 18:30 Albuterol Sulfate (Ventolin Neb Soln) 2.5 mg PRN Q4HRS PRN NEB SHORTNESS OF BREATH; Start 07/05/20 at 18:30 Guaifenesin (Robitussin) 200 mg PRN Q4HRS PRN PO COUGH; Start 07/05/20 at 18:30 Enoxaparin Sodium (Lovenox 40mg Syringe) 40 mg Q24H SQ Last administered on 07/05/20at 23:05; Start 07/05/20 at 21:00 Hydromorphone HCl (Dilaudid) 0.4 mg PRN Q4HRS PRN IVP PAIN Last administered on 07/06/20at 04:48; Start 07/05/20 at 18:45 Famotidine (Pepcid Vial) 20 mg BID IVP Last administered on 07/06/20at 08:43; Start 07/05/20 at 21:00 Potassium Bicarbonate (Potassium Effervescent Tablet) 20 meq 1X ONCE PO Last administered on 07/05/20at 23:25; Start 07/05/20 at 23:15; Stop 07/05/20 at 23:16; Status DC Ceftriaxone Sodium (Rocephin) 1 gm ONCE ONCE IVP Last administered on 07/05/20at 23:57; Start 07/05/20 at 23:48; Stop 07/05/20 at 23:49; Status DC Potassium Bicarbonate (Potassium Effervescent Tablet) 20 meq 1X ONCE PO Last administered on 07/06/20at 06:16; Start 07/06/20 at 06:30; Stop 07/06/20 at 06:31; Status DC Vitals/I & O Vital Sign - Last 24 Hours 07/05/20 07/05/20 07/05/20 07/05/20 11:48 12:24 12:32 13:02 Temp 98.4 98.4 98.4 98.4 Pulse 86 86 82 90 Resp 20 18 18 B/P (MAP) 83/46 (58) 83/46 (58) 87/58 (68) 95/58 (70) Pulse Ox 100 100 100 100 O2 Delivery Room Air 07/05/20 07/05/20 07/05/20 07/05/20 13:32 14:02 15:02 15:52 Pulse 92 86 94 Resp 18 18 24 B/P (MAP) 76/45 (55) 92/59 (70) 104/58 (73) Pulse Ox 100 100 O2 Delivery Room Air 07/05/20 07/05/20 07/05/20 07/05/20 16:02 16:32 17:32 20:10 Temp 100.5 100.5 Pulse 108 110 122 123 Resp 18 18 18 22 B/P (MAP) 102/64 (77) 109/58 (75) 104/56 (72) 96/59 (71) Pulse Ox 98 99 99 97 O2 Delivery Room Air 07/05/20 07/06/20 07/06/20 07/06/20 23:31 00:15 03:44 04:48 Temp 99.2 98.9 99.2 98.9 Pulse 112 95 Resp 20 B/P (MAP) 92/49 (63) 92/57 (69) Pulse Ox 96 98 O2 Delivery Room Air Room Air Room Air Room Air 07/06/20 07/06/20 07/06/20 05:18 06:31 08:14 Temp 97.9 97.9 97.9 97.9 Pulse 103 106 Resp 20 20 16 B/P (MAP) 111/65 (80) 97/64 (75) Pulse Ox 97 97 O2 Delivery Room Air Room Air Room Air Intake and Output 07/05/20 07/05/20 07/06/20 15:00 23:00 07:00 Intake Total 2000 ml 0 ml Output Total 400 ml Balance 2000 ml -400 ml Justifications for Admission General Conditions Poss tachycardia?: Yes Justification for admission: Patient has tachycardia (> 100 beats per minute) which is not readily corrected by appropriate treatment within 12 to 24 hours. Other justification for admit: SEPSIS Other Justification MONIKA BRYSON MD Jul 06, 2020 08:54
--- NOTE | 2020-07-06 09:13 | PDOC ---
[facility] PROGRESS NOTE Date of Service DOS: DATE: 07/06/20 TIME: 09:08 Chief Complaint Chief Complaint A/P: Left pyelonephritis - Left perinephric and renal edema as well as peripelvic and periureteral edema. No significant hydronephrosis. Rocephin ordered. toradol Asymmetric left lower lobe posterior basilar opacity adjacent of the diaphragm may be asymmetric atelectasis versus early lobar pneumonia. Cholelithiasis. Asymmetric 2.5 cm round soft tissue density left adnexa could be asymmetric positioning of the ovary versus an underlying mass - corporate librarian consulted Sepsis - due to pyelonephritis MAHI - vasomotor nephropathy from sepsis History of Present Illness History of Present Illness Ms Zhang is a 39 yo greek-speaking only who presented to ER due to left-sided flank pain with frequent urination for 10 days. she was seen by her doctor prescribed Bactrim DS. ct c/w acute pyelo, wbc 26.7 pos cva tenderness left lower lobe posterior basilar opacity adjacent of the diaphragm may be asymmetric atelectasis versus early lobar pneumonia. on ct Patient has taken this medication for 7 days did not get any better. //complains of more back pain and flank pain Bur[place]ian speaking, history was taken through [facility] [employer]. Headache today. Fever and chills. Still having left flank pain. Some pelvic pain as well. Vitals/I&O Vitals/I&O: Vital Signs Date Time Temp Pulse Resp B/P (MAP) Pulse Ox O2 Delivery O2 Flow Rate FiO2 07/06/20 08:14 97.9 106 16 97/64 (75) 97 Room Air 97.9 I & O 07/05/20 07/05/20 07/06/20 15:00 23:00 07:00 Intake Total 2000 ml 0 ml Output Total 400 ml Balance 2000 ml -400 ml Physical Exam General: Alert, Oriented X3, Cooperative, No acute distress, mild distress Abdomen: Normal bowel sounds, Soft, Other (MILD TENDERNESS) Extremities: No clubbing, No cyanosis, No edema Labs Labs: Laboratory Tests Test 07/05/20 12:17 07/05/20 12:20 07/05/20 14:17 07/06/20 03:50 White Blood Count 26.7 x10^3/uL (4.0-11.0) 23.3 x10^3/uL (4.0-11.0) Red Blood Count 3.69 x10^6/uL (3.50-5.40) 3.15 x10^6/uL (3.50-5.40) Hemoglobin 9.7 g/dL (12.0-15.5) 8.4 g/dL (12.0-15.5) Hematocrit 29.7 % (36.0-47.0) 25.5 % (36.0-47.0) Mean Corpuscular Volume 80 fL (79-100) 81 fL (79-100) Mean Corpuscular Hemoglobin 26 pg (25-35) 27 pg (25-35) Mean Corpuscular Hemoglobin Concent 33 g/dL (31-37) 33 g/dL (31-37) Red Cell Distribution Width 16.1 % (11.5-14.5) 16.5 % (11.5-14.5) Platelet Count 254 x10^3/uL (140-400) 204 x10^3/uL (140-400) Neutrophils (%) (Auto) 87 % (31-73) 88 % (31-73) Lymphocytes (%) (Auto) 3 % (24-48) 3 % (24-48) Monocytes (%) (Auto) 9 % (0-9) 9 % (0-9) Eosinophils (%) (Auto) 0 % (0-3) 0 % (0-3) Basophils (%) (Auto) 1 % (0-3) 0 % (0-3) Neutrophils # (Auto) 23.4 x10^3/uL (1.8-7.7) 20.6 x10^3/uL (1.8-7.7) Lymphocytes # (Auto) 0.7 x10^3/uL (1.0-4.8) 0.6 x10^3/uL (1.0-4.8) Monocytes # (Auto) 2.5 x10^3/uL (0.0-1.1) 2.0 x10^3/uL (0.0-1.1) Eosinophils # (Auto) 0.0 x10^3/uL (0.0-0.7) 0.0 x10^3/uL (0.0-0.7) Basophils # (Auto) 0.2 x10^3/uL (0.0-0.2) 0.0 x10^3/uL (0.0-0.2) Segmented Neutrophils % 76 % (35-66) Band Neutrophils % 12 % (0-9) Lymphocytes % 1 % (24-48) Monocytes % 11 % (0-10) Platelet Estimate Adequate (ADEQUATE) Sodium Level 134 mmol/L (136-145) 143 mmol/L (136-145) Potassium Level 3.3 mmol/L (3.5-5.1) 3.8 mmol/L (3.5-5.1) Chloride Level 102 mmol/L (98-107) 111 mmol/L (98-107) Carbon Dioxide Level 22 mmol/L (21-32) 16 mmol/L (21-32) Anion Gap 10 (6-14) 16 (6-14) Blood Urea Nitrogen 14 mg/dL (7-20) 9 mg/dL (7-20) Creatinine 1.3 mg/dL (0.6-1.0) 1.0 mg/dL (0.6-1.0) Estimated GFR (Cockcroft-Gault) 45.6 61.7 BUN/Creatinine Ratio 11 (6-20) 9 (6-20) Glucose Level 106 mg/dL (70-99) 72 mg/dL (70-99) Calcium Level 8.5 mg/dL (8.5-10.1) 7.0 mg/dL (8.5-10.1) Total Bilirubin 1.6 mg/dL (0.2-1.0) 1.4 mg/dL (0.2-1.0) Aspartate Amino Transf (AST/SGOT) 39 U/L (15-37) 21 U/L (15-37) Alanine Aminotransferase (ALT/SGPT) 77 U/L (14-59) 50 U/L (14-59) Alkaline Phosphatase 139 U/L (46-116) 129 U/L (46-116) Total Protein 7.0 g/dL (6.4-8.2) 5.5 g/dL (6.4-8.2) Albumin 3.2 g/dL (3.4-5.0) 2.1 g/dL (3.4-5.0) Albumin/Globulin Ratio 0.8 (1.0-1.7) 0.6 (1.0-1.7) Lipase 44 U/L (73-393) Procalcitonin 3.58 ng/mL (0.00-0.10) Urine Collection Type Unknown Urine Color Yadira Urine Clarity Clear Urine pH 6.0 (<5.0-8.0) Urine Specific [place] 1.010 (1.000-1.030) Urine Protein 30 mg/dL (NEG-TRACE) Urine Glucose (UA) Negative mg/dL (NEG) Urine Ketones (Stick) Negative mg/dL (NEG) Urine Blood Large (NEG) Urine Nitrite Negative (NEG) Urine Bilirubin Small (NEG) Urine Urobilinogen Dipstick 1.0 mg/dL (0.2 mg/dL) Urine Leukocyte Esterase Large (NEG) Urine RBC 3-5 /HPF (0-2) Urine WBC >40 /HPF (0-4) Urine Squamous Epithelial Cells Mod /LPF Urine Bacteria Few /HPF (0-FEW) Urine Test Negative (NEG) Lactic Acid Level 1.1 mmol/L (0.4-2.0) 0.9 mmol/L (0.4-2.0) Prothrombin Time 17.0 SEC (11.7-14.0) Prothromb Time International Ratio 1.4 (0.8-1.1) Activated Partial Thromboplast Time 47 SEC (24-38) Fibrinogen 686 mg/dL (200-440) D-Dimer (Taina) 2.63 ug/mlFEU (0.00-0.50) Assessment and Plan Assessmemt and Plan Problems Medical Problems: (1) Acute pyelonephritis Status: Acute Goals of Care: Advance Care Planning: Total time spent [id number] with patient greater than 16 minutes in discussion with goals of care, comfort care, end-of-life care, pain management, code status Comment Review of Relevant I have reviewed the following items barb (where applicable) has been applied. Medications: Current Medications Medications (Trade) Dose Ordered Sig/Lan Route PRN Reason Start Time Stop Time Status Last Admin Dose Admin Sodium Chloride 1,000 ml @ 1,000 mls/hr Q1H IV 07/05/20 12:15 07/05/20 13:14 DC 07/05/20 13:00 Ceftriaxone Sodium (Rocephin) 1 gm 1X ONCE IVP 4/17/21 12:15 07/05/20 12:40 DC 07/05/20 12:59 Sodium Chloride 1,000 ml @ 1,000 mls/hr 1X ONCE IV 07/05/20 13:30 07/05/20 14:29 DC 07/05/20 13:44 Iohexol (Omnipaque 240 Mg/ml) 30 ml 1X ONCE PO 07/05/20 14:00 07/05/20 14:01 DC 07/05/20 14:40 Morphine Sulfate (Morphine Sulfate) 4 mg 1X ONCE IV 07/05/20 15:45 07/05/20 15:46 DC 07/05/20 15:52 Ketorolac Tromethamine (Toradol 15mg Vial) 15 mg 1X ONCE IVP 07/05/20 16:30 07/05/20 16:31 DC 07/05/20 17:39 Sodium Chloride 1,560 ml @ 1,560 mls/hr Q1H IV 07/05/20 18:30 07/06/20 02:00 DC 07/05/20 22:53 Sodium Chloride 1,000 ml @ 100 mls/hr Q10H IV 07/05/20 18:30 07/06/20 00:20 Ondansetron HCl (Zofran) 4 mg PRN Q4HRS PRN IV NAUSEA/VOMITING 07/05/20 18:30 07/06/20 06:23 Acetaminophen (Tylenol) 650 mg PRN Q4HRS PRN PO TEMP OVER 100.4F OR MILD PAIN 07/05/20 18:30 07/06/20 00:17 Enoxaparin Sodium (Lovenox 40mg Syringe) 40 mg Q24H SQ 07/05/20 21:00 07/05/20 23:05 Hydromorphone HCl (Dilaudid) 0.4 mg PRN Q4HRS PRN IVP PAIN 07/05/20 18:45 07/06/20 04:48 Famotidine (Pepcid Vial) 20 mg BID IVP 07/05/20 21:00 07/06/20 08:43 Potassium Bicarbonate (Potassium Effervescent Tablet) 20 meq 1X ONCE PO 07/05/20 23:15 07/05/20 23:16 DC 07/05/20 23:25 Ceftriaxone Sodium (Rocephin) 1 gm ONCE ONCE IVP 07/05/20 23:48 07/05/20 23:49 DC 07/05/20 23:57 Potassium Bicarbonate (Potassium Effervescent Tablet) 20 meq 1X ONCE PO 07/06/20 06:30 07/06/20 06:31 DC 07/06/20 06:16 Justifications for Admission General Conditions Poss tachycardia?: Yes Justification for admission: Patient has tachycardia (> 100 beats per minute) which is not readily corrected by appropriate treatment within 12 to 24 hours. Other justification for admit: SEPSIS Other Justification FATIMAH PLAZA MD Jul 06, 2020 09:13
[2020-07-06] MEDS ORDERED: ALBUMIN HUMAN 5% 500 ML IV ONE (09:15)
[2020-07-06] MEDS ORDERED: PROCHLORPERAZINE 10 MG/2 ML VIAL. IM PRN (10:45)
[2020-07-06] MEDS ORDERED: cefTRIAXone IV Push 1 GM VIAL. IVP SCH (12:00)
[2020-07-06] MEDS ORDERED: cefTRIAXone IV Push 2 GM VIAL. IVP SCH (13:00)
[2020-07-06] MEDS: PIPERACILLIN/TAZOBACTAM 3.375 GM in IV NORMAL SALINE 50ML 50 ML IV SCH ×3 (13:20→23:45)
--- NOTE | 2020-07-06 14:21 | PDOC2 ---
CONSULT Date of Consult Date of Consult DATE: 07/06/20 TIME: 14:17 Reason for Consult Reason for Consult: Possible adnexal mass Referring Physician Referring Physician: Dr. Wadsworth Identification/Chief Complaint Chief Complaint Lower back pain and abd pain Source Source: Chart review, Patient History of Present Illness Reason for Visit: 39 y/o presented to ED with c/o Left lower back pain that continued to worsen over the last few weeks. She failed outpatient management of UTI and now diagnosed with Left pyelonephritis and cholelithiasis. Pt. currently taking IV abx and WBC decreasing. Her pain is improving since admission. Past Surgical History Past Surgical History: Tubal Ligation Family History Family History: Chronic Bronchitis, Hypertension Social History <1 pack per day ALCOHOL: occassional Drugs: None Current Problem List Problem List Problems Medical Problems: (1) Acute pyelonephritis Status: Acute Current Medications Current Medications Current Medications Sodium Chloride 1,000 ml @ 1,000 mls/hr Q1H IV Last administered on 07/05/20at 13:00; Start 07/05/20 at 12:15; Stop 07/05/20 at 13:14; Status DC Ceftriaxone Sodium (Rocephin) 1 gm 1X ONCE IVP Last administered on 07/05/20at 12:59; Start 07/05/20 at 12:15; Stop 07/05/20 at 12:40; Status DC Sodium Chloride 1,000 ml @ 1,000 mls/hr 1X ONCE IV Last administered on 07/05/20at 13:44; Start 07/05/20 at 13:30; Stop 07/05/20 at 14:29; Status DC Iohexol (Omnipaque 240 Mg/ml) 30 ml 1X ONCE PO Last administered on 07/05/20at 14:40; Start 07/05/20 at 14:00; Stop 07/05/20 at 14:01; Status DC Morphine Sulfate (Morphine Sulfate) 4 mg 1X ONCE IV Last administered on 07/05/20at 15:52; Start 07/05/20 at 15:45; Stop 07/05/20 at 15:46; Status DC Ketorolac Tromethamine (Toradol 15mg Vial) 15 mg 1X ONCE IVP Last administered on 07/05/20at 17:39; Start 07/05/20 at 16:30; Stop 07/05/20 at 16:31; Status DC Ondansetron HCl (Zofran) 4 mg PRN Q8HRS PRN IV NAUSEA/VOMITING; Start 07/05/20 at 16:45; Stop 07/06/20 at 12:31; Status DC Morphine Sulfate (Morphine Sulfate) 2 mg PRN Q2HR PRN IV PAIN; Start 07/05/20 at 16:45; Stop 07/05/20 at 18:34; Status DC Sodium Chloride 1,000 ml @ 100 mls/hr Q10H IV ; Start 07/05/20 at 16:45; Stop 07/05/20 at 23:51; Status DC Ceftriaxone Sodium (Rocephin) 1 gm Q24H IVP ; Start 07/06/20 at 12:00; Stop 07/05/20 at 18:14; Status DC Ceftriaxone Sodium (Rocephin) 2 gm Q24H IVP ; Start 07/06/20 at 13:00; Stop 07/06/20 at 11:26; Status DC Ceftriaxone Sodium (Rocephin) 1 gm 1X ONCE IVP ; Start 07/05/20 at 18:30; Stop 07/05/20 at 18:31; Status Cancel Sodium Chloride 1,560 ml @ 1,560 mls/hr Q1H IV Last administered on 07/05/20at 22:53; Start 07/05/20 at 18:30; Stop 07/06/20 at 02:00; Status DC Sodium Chloride 500 ml @ 1,000 mls/hr PRN Q30MIN PRN IV SEE COMMENTS; Start 07/05/20 at 18:30 Potassium Bicarbonate (Potassium Effervescent Tablet) 40 meq 1X ONCE PO ; Start 07/05/20 at 18:30; Stop 07/05/20 at 18:31; Status Cancel Potassium Bicarbonate (Potassium Effervescent Tablet) 20 meq 1X ONCE PO ; Start 07/06/20 at 06:30; Stop 07/05/20 at 23:00; Status DC Sodium Chloride (Normal Saline Flush) 3 ml QSHIFT PRN IV AFTER MEDS AND BLOOD DRAWS; Start 07/05/20 at 18:30 Sodium Chloride 1,000 ml @ 100 mls/hr Q10H IV Last administered on 07/06/20at 00:20; Start 07/05/20 at 18:30 Ondansetron HCl (Zofran) 4 mg PRN Q4HRS PRN IV NAUSEA/VOMITING Last administered on 07/06/20at 10:50; Start 07/05/20 at 18:30 Acetaminophen (Tylenol) 650 mg PRN Q4HRS PRN PO TEMP OVER 100.4F OR MILD PAIN Last administered on 07/06/20at 00:17; Start 07/05/20 at 18:30 Acetaminophen (Tylenol Supp) 650 mg PRN Q4HRS PRN [place] TEMP OVER 100.4F OR MILD PAIN; Start 07/05/20 at 18:30 Al Hydroxide/Mg Hydroxide (Mylanta Plus Xs) 30 ml PRN DAILY PRN PO HEARTBURN / GAS; Start 07/05/20 at 18:30 Sodium Monofluorophosphate (Fleet Adult) 133 ml PRN DAILY PRN [place] CONSTIPATION; Start 07/05/20 at 18:30; Stop 07/06/20 at 09:13; Status DC Docusate Sodium (Colace) 100 mg PRN BID PRN PO HARD STOOLS; Start 07/05/20 at 18:30 Albuterol Sulfate (Ventolin Neb Soln) 2.5 mg PRN Q4HRS PRN NEB SHORTNESS OF BREATH; Start 07/05/20 at 18:30 Guaifenesin (Robitussin) 200 mg PRN Q4HRS PRN PO COUGH; Start 07/05/20 at 18:30 Enoxaparin Sodium (Lovenox 40mg Syringe) 40 mg Q24H SQ Last administered on 07/05/20at 23:05; Start 07/05/20 at 21:00 Hydromorphone HCl (Dilaudid) 0.4 mg PRN Q4HRS PRN IVP PAIN Last administered on 07/06/20at 10:50; Start 07/05/20 at 18:45 Famotidine (Pepcid Vial) 20 mg BID IVP Last administered on 07/06/20at 08:43; Start 07/05/20 at 21:00 Potassium Bicarbonate (Potassium Effervescent Tablet) 20 meq 1X ONCE PO Last administered on 07/05/20at 23:25; Start 07/05/20 at 23:15; Stop 07/05/20 at 23:16; Status DC Ceftriaxone Sodium (Rocephin) 1 gm ONCE ONCE IVP Last administered on 07/05/20at 23:57; Start 07/05/20 at 23:48; Stop 07/05/20 at 23:49; Status DC Potassium Bicarbonate (Potassium Effervescent Tablet) 20 meq 1X ONCE PO Last administered on 07/06/20at 06:16; Start 07/06/20 at 06:30; Stop 07/06/20 at 06:31; Status DC Ketorolac Tromethamine (Toradol 30mg Vial) 30 mg PRN Q6HRS PRN IVP INFLAMMATION ; Start 07/06/20 at 09:15; Stop 07/11/20 at 09:14 Albumin Human 500 ml @ 125 mls/hr 1X ONCE IV Last administered on 07/06/20at 10:50; Start 07/06/20 at 09:15; Stop 07/06/20 at 13:14; Status DC Prochlorperazine Edisylate (Compazine) 10 mg PRN Q6HRS PRN IM NAUSEA/VOMITING- 2ND CHOICE; Start 07/06/20 at 10:45 Piperacillin Sod/ Tazobactam Sod 3.375 gm/Sodium Chloride 50 ml @ 100 mls/hr Q6HRS IV Last administered on 07/06/20at 13:20; Start 07/06/20 at 12:00 Lactobacillus Rhamnosus (Culturelle) 1 cap BID PO ; Start 07/06/20 at 21:00 Allergies Allergies: Coded Allergies: No Known Drug Allergies (Unverified , 07/05/20) ROS General: YES: Night Sweats; No: Chills, Fatigue, Malaise, Appetite, Other PSYCHOLOGICAL ROS: YES: Anxiety; No: Behavioral Disorder, Concentration difficultie, Decreased libido, Depression, Disorientation, Hallucinations, Hostility, Irritablity, Memory di fficulties, Mood Swings, Obsessive thoughts, Physical abuse, Sexual abuse, Sleep disturbances, Suicidal ideation, Other Eyes: No Blurry vision, No Decreased vision, No Double vision, No Dry eyes, No Excessive tearing, No Eye Pain, No Itchy Eyes, No Loss of vision, No Photophobia, No Scotomata, No Uses contacts, No Uses glasses, No Other HEENT: No: Heacaches, Visual Changes, Hearing change, Nasal congestion, Nasal discharge, Oral lesions, Sinus pain, Sore Throat, Epistaxis, Sneezing, Snoring, Tinnitus, Vertigo, Vocal changes, Other ALLERGY AND IMMUNOLOGY: No: Hives, Insect Bite Sensitivity, Itchy/Watery Eyes, Nasal Congestion, Post Nasal Drip, Seasonal Allergies, Other Hematological and Lymphatic: No: Bleeding Problems, Blood Clots, Blood Transfusions, Brusing, Night Sweats, Pallor, Swollen Lymph Nodes, Other ENDOCRINE: No: Breast Changes, Galactorrhea, Hair Pattern Changes, Hot Flashes, Malaise/lethargy, Mood Swings, Palpitations, Polydipsia/polyuria, Skin Changes, Temperature Intolerance, Unexpected Weight Changes, Other Breast: No New/Changing Breast Lumps, No Nipple changes, No Nipple discharge, No Other Respiratory: No: Cough, Hemoptysis, Orthopnea, Pleuritic Pain, Shortness of breath, SOB with excertion, Sputum Changes, Stridor, Tachypnea, Wheezing, Other Cardiovascular: No Chest Pain, No Palpitations, No Orthopnea, No Paroxysmal Noc . Dyspnea, No Edema, No Lt Headedness, No Other Gastrointestinal: Yes Abdominal Pain Genitourinary: YES Dysuria, YES Flank Pain (Left) Skin: No Dry Skin, No Eczema, No Hair Changes, No Lumps, No Mole Changes, No Mottling, No Nail Changes, No Pruritus, No Rash, No Skin Lesion Changes, No Other, No Acne Physical Exam General: Alert, Oriented X3, Cooperative HEENT: Atraumatic Lungs: Clear to auscultation Heart: Regular rate Abdomen: Normal bowel sounds, Soft, No masses, Other (Left CVA tenderness) Extremities: No clubbing, No cyanosis, No edema, Normal pulses Neuro: Normal gait Psych/Mental Status: Mental status NL Vitals VITALS Vital Signs Date Time Temp Pulse Resp B/P (MAP) Pulse Ox O2 Delivery O2 Flow Rate FiO2 07/06/20 11:20 Room Air 07/06/20 11:00 99.8 114 18 119/66 (83) 100 99.8 Labs Labs Laboratory Tests Test 07/05/20 12:17 07/05/20 12:20 07/05/20 14:17 07/06/20 03:50 White Blood Count 26.7 x10^3/uL (4.0-11.0) 23.3 x10^3/uL (4.0-11.0) Red Blood Count 3.69 x10^6/uL (3.50-5.40) 3.15 x10^6/uL (3.50-5.40) Hemoglobin 9.7 g/dL (12.0-15.5) 8.4 g/dL (12.0-15.5) Hematocrit 29.7 % (36.0-47.0) 25.5 % (36.0-47.0) Mean Corpuscular Volume 80 fL (79-100) 81 fL (79-100) Mean Corpuscular Hemoglobin 26 pg (25-35) 27 pg (25-35) Mean Corpuscular Hemoglobin Concent 33 g/dL (31-37) 33 g/dL (31-37) Red Cell Distribution Width 16.1 % (11.5-14.5) 16.5 % (11.5-14.5) Platelet Count 254 x10^3/uL (140-400) 204 x10^3/uL (140-400) Neutrophils (%) (Auto) 87 % (31-73) 88 % (31-73) Lymphocytes (%) (Auto) 3 % (24-48) 3 % (24-48) Monocytes (%) (Auto) 9 % (0-9) 9 % (0-9) Eosinophils (%) (Auto) 0 % (0-3) 0 % (0-3) Basophils (%) (Auto) 1 % (0-3) 0 % (0-3) Neutrophils # (Auto) 23.4 x10^3/uL (1.8-7.7) 20.6 x10^3/uL (1.8-7.7) Lymphocytes # (Auto) 0.7 x10^3/uL (1.0-4.8) 0.6 x10^3/uL (1.0-4.8) Monocytes # (Auto) 2.5 x10^3/uL (0.0-1.1) 2.0 x10^3/uL (0.0-1.1) Eosinophils # (Auto) 0.0 x10^3/uL (0.0-0.7) 0.0 x10^3/uL (0.0-0.7) Basophils # (Auto) 0.2 x10^3/uL (0.0-0.2) 0.0 x10^3/uL (0.0-0.2) Segmented Neutrophils % 76 % (35-66) Band Neutrophils % 12 % (0-9) Lymphocytes % 1 % (24-48) Monocytes % 11 % (0-10) Platelet Estimate Adequate (ADEQUATE) Sodium Level 134 mmol/L (136-145) 143 mmol/L (136-145) Potassium Level 3.3 mmol/L (3.5-5.1) 3.8 mmol/L (3.5-5.1) Chloride Level 102 mmol/L (98-107) 111 mmol/L (98-107) Carbon Dioxide Level 22 mmol/L (21-32) 16 mmol/L (21-32) Anion Gap 10 (6-14) 16 (6-14) Blood Urea Nitrogen 14 mg/dL (7-20) 9 mg/dL (7-20) Creatinine 1.3 mg/dL (0.6-1.0) 1.0 mg/dL (0.6-1.0) Estimated GFR (Cockcroft-Gault) 45.6 61.7 BUN/Creatinine Ratio 11 (6-20) 9 (6-20) Glucose Level 106 mg/dL (70-99) 72 mg/dL (70-99) Calcium Level 8.5 mg/dL (8.5-10.1) 7.0 mg/dL (8.5-10.1) Total Bilirubin 1.6 mg/dL (0.2-1.0) 1.4 mg/dL (0.2-1.0) Aspartate Amino Transf (AST/SGOT) 39 U/L (15-37) 21 U/L (15-37) Alanine Aminotransferase (ALT/SGPT) 77 U/L (14-59) 50 U/L (14-59) Alkaline Phosphatase 139 U/L (46-116) 129 U/L (46-116) Total Protein 7.0 g/dL (6.4-8.2) 5.5 g/dL (6.4-8.2) Albumin 3.2 g/dL (3.4-5.0) 2.1 g/dL (3.4-5.0) Albumin/Globulin Ratio 0.8 (1.0-1.7) 0.6 (1.0-1.7) Lipase 44 U/L (73-393) Procalcitonin 3.58 ng/mL (0.00-0.10) Urine Collection Type Unknown Urine Color Yadira Urine Clarity Clear Urine pH 6.0 (<5.0-8.0) Urine Specific Jackson 1.010 (1.000-1.030) Urine Protein 30 mg/dL (NEG-TRACE) Urine Glucose (UA) Negative mg/dL (NEG) Urine Ketones (Stick) Negative mg/dL (NEG) Urine Blood Large (NEG) Urine Nitrite Negative (NEG) Urine Bilirubin Small (NEG) Urine Urobilinogen Dipstick 1.0 mg/dL (0.2 mg/dL) Urine Leukocyte Esterase Large (NEG) Urine RBC 3-5 /HPF (0-2) Urine WBC >40 /HPF (0-4) Urine Squamous Epithelial Cells Mod /LPF Urine Bacteria Few /HPF (0-FEW) Urine Test Negative (NEG) Lactic Acid Level 1.1 mmol/L (0.4-2.0) 0.9 mmol/L (0.4-2.0) Prothrombin Time 17.0 SEC (11.7-14.0) Prothromb Time International Ratio 1.4 (0.8-1.1) Activated Partial Thromboplast Time 47 SEC (24-38) Fibrinogen 686 mg/dL (200-440) D-Dimer (Taina) 2.63 ug/mlFEU (0.00-0.50) Laboratory Tests Test 07/06/20 03:50 White Blood Count 23.3 x10^3/uL (4.0-11.0) Red Blood Count 3.15 x10^6/uL (3.50-5.40) Hemoglobin 8.4 g/dL (12.0-15.5) Hematocrit 25.5 % (36.0-47.0) Mean Corpuscular Volume 81 fL (79-100) Mean Corpuscular Hemoglobin 27 pg (25-35) Mean Corpuscular Hemoglobin Concent 33 g/dL (31-37) Red Cell Distribution Width 16.5 % (11.5-14.5) Platelet Count 204 x10^3/uL (140-400) Neutrophils (%) (Auto) 88 % (31-73) Lymphocytes (%) (Auto) 3 % (24-48) Monocytes (%) (Auto) 9 % (0-9) Eosinophils (%) (Auto) 0 % (0-3) Basophils (%) (Auto) 0 % (0-3) Neutrophils # (Auto) 20.6 x10^3/uL (1.8-7.7) Lymphocytes # (Auto) 0.6 x10^3/uL (1.0-4.8) Monocytes # (Auto) 2.0 x10^3/uL (0.0-1.1) Eosinophils # (Auto) 0.0 x10^3/uL (0.0-0.7) Basophils # (Auto) 0.0 x10^3/uL (0.0-0.2) Prothrombin Time 17.0 SEC (11.7-14.0) Prothromb Time International Ratio 1.4 (0.8-1.1) Activated Partial Thromboplast Time 47 SEC (24-38) Fibrinogen 686 mg/dL (200-440) D-Dimer (Taina) 2.63 ug/mlFEU (0.00-0.50) Sodium Level 143 mmol/L (136-145) Potassium Level 3.8 mmol/L (3.5-5.1) Chloride Level 111 mmol/L (98-107) Carbon Dioxide Level 16 mmol/L (21-32) Anion Gap 16 (6-14) Blood Urea Nitrogen 9 mg/dL (7-20) Creatinine 1.0 mg/dL (0.6-1.0) Estimated GFR (Cockcroft-Gault) 61.7 BUN/Creatinine Ratio 9 (6-20) Glucose Level 72 mg/dL (70-99) Lactic Acid Level 0.9 mmol/L (0.4-2.0) Calcium Level 7.0 mg/dL (8.5-10.1) Total Bilirubin 1.4 mg/dL (0.2-1.0) Aspartate Amino Transf (AST/SGOT) 21 U/L (15-37) Alanine Aminotransferase (ALT/SGPT) 50 U/L (14-59) Alkaline Phosphatase 129 U/L (46-116) Total Protein 5.5 g/dL (6.4-8.2) Albumin 2.1 g/dL (3.4-5.0) Albumin/Globulin Ratio 0.6 (1.0-1.7) Assessment/Plan Assessment/Plan A: Left Pyelonephritis Cholelithiasis P: Continue with current plan of care. Pelvic sono was negative for adnexal mass. Thank you for consultation. JHONNY CHUN Jr, MD Jul 06, 2020 14:21
--- NOTE | 2020-07-06 15:38 | RAD ---
US PELVIS COMPLETE History: Reason: pelvic mass seen on CT / Spl. Instructions: / History: Comparison: CT July 05, 2020 Technique: Grayscale and color Doppler imaging of the pelvis was performed using transabdominal techn ique. Findings: The uterus measures 11.5 x 6.2 x 4.9 cm. Uterus has an unremarkable appearance. The endometrial str ipe measures 9 mm. Right ovary measures 3.0 x 2.2 x 1.5 cm. Left ovary measures 3.7 x 3.8 x 2.3 cm. Mildly enlarged appearance of the left ovary corresponding wi th prior CT. No definite underlying mass. Normal Doppler flow to the ovaries. No adnexal masses are seen. IMPRESSION: 1. Mildly prominent left ovary. No well-defined mass. Recommend ultrasound follow-up. Electronically signed by: Loi Cote DO (07/06/2020 3:36 PM) [facility]
--- NOTE | 2020-07-06 15:42 | RAD ---
US ABDOMEN COMPLETE History: Reason: gallstones, sepsis, pyelo / Spl. Instructions: / History: Comparison: CT July 05, 2020 Technique: Sonographic examination of the abdomen was performed and multiple grayscale and color Dopp ler static images were obtained. Findings: Liver demonstrates normal echogenicity. The liver measures 16.8 cm. Portal flow is patent. Cholelithiasis. Mild gallbladder wall thickening measures 4.7 mm. No pericholecystic fluid. Common bile duct measures 1.3 mm in diameter. Visualized pancreas not well seen due to overlying bowel gas. The right kidney measures 13.1 x 5.6 x 6.2 cm. No hydronephrosis. Urothelial thickening. The left kidney measures 11.0 x 5.4 x 5.4 cm. No hydronephrosis. Urothelial thickening. The spleen measures 11.2 cm. Aorta and IVC not well seen due to overlying bowel gas. Small right pleural effusion. IMPRESSION: 1. Cholelithiasis with gallbladder wall thickening. If persistent clinical concern, HIDA scan can be tter evaluate gallbladder function. 2. Bilateral urothelial thickening. Electronically signed by: Loi Cote DO (07/06/2020 3:39 PM) [facility]
--- NOTE | 2020-07-06 16:28 | CONS ---
DATE OF CONSULTATION: 07/06/2020 REFERRING PHYSICIAN: Dr. Saenz. REASON FOR CONSULTATION: Antibiotic management for pyelonephritis. HISTORY OF PRESENT ILLNESS: A 39-year-old female, , who has been in the [place] for a couple of months, presented to the ER with complaints of left flank pain with dysuria and increased frequency of urination. History obtained with Mongolian-speaking RN. The patient was seen by an outside provider who prescribed Bactrim-DS though. Upon questioning, the patient said she had not been on any antibiotics, this is per chart. The patient had abdominal pain, more on the left side, had dysuria. No hematuria. No abnormal vaginal discharge. Her white count was 26.7, 12 bands. UA showed large blood, large leukocyte esterase, greater than 40 wbc's. Urine test negative. INR was 1.4. Fibrinogen 686. D-dimer 2.63. Creatinine was 1.3. Sodium of 134, potassium of 3.3, total bilirubin 1.6, AST 39, ALT 77, alk phos 139, albumin 3.2, normal lipase, procalcitonin is 3.58. Repeat creatinine is 1.1. Lactate of 1.1. CT abdomen and pelvis showed left perinephric and renal edema as well as peripelvic and periureteral edema. No significant hydronephrosis. This may indicate pyelonephritis. No obstructing urinary calculus evident. Mild retroperitoneal adenopathy adjacent to the left renal vessel, which may be reactive, measuring about 1.5 cm in size, 2 mm nonobstructing left renal pelvis. Asymmetric left lower lobe posterior basilar opacity adjacent to the diaphragm, may be asymmetric atelectasis or early lobar pneumonia. Follow up chest x-ray recommended ____ cholelithiasis estimated 2.5 cm round, soft tissue edema, left adnexa, could be asymmetric positioning of the ovary versus underlying mass. Appendix is negative. The patient was started on Rocephin. ID consultation has been requested for antibiotic management. The patient had low-grade fever earlier. Continues to have left flank pain and left upper quadrant pain, some in the right side of the abdomen, some nausea, some cough. No chest pain. Denies any blood in urine. Denies any abnormal vaginal discharge. PAST MEDICAL HISTORY: Recurrent UTI, appears the patient had hospitalization a year ago in [place] for similar symptoms. PAST SURGICAL HISTORY: Tubal ligation. SOCIAL HISTORY: Smokes less than 1 pack per day. ETOH: None. No drugs. , has 5 children. Recently moved to couple of months ago. FAMILY HISTORY: As per HPI. CURRENT MEDICATIONS: Ceftriaxone. ALLERGIES: No known drug allergies. REVIEW OF SYSTEMS: Negative except for above in HPI. PHYSICAL EXAMINATION: VITAL SIGNS: Temperature 97.9, T-max 100.5, pulse 106, respirations 16, blood pressure 97/64, oxygen saturation 97% on room air. GENERAL: Alert, oriented x 3, ambulant female, in no acute distress. HEENT: Normocephalic, atraumatic, anicteric. No thrush. Oral mucosa moist. NECK: Supple. No JVD. No lymphadenopathy. LUNGS: Clear bilaterally. No wheezing. HEART: S1, S2. Tachycardia. No gallops or murmurs. ABDOMEN: Soft, mild tenderness present in all 4 quadrants, more on the left lower quadrant, left flank, some over the right upper quadrant. No rebound. No guarding. BACK: Reveals normal curvature. Mild CVA tenderness on the left side. EXTREMITIES: No edema. No cyanosis. DERMATOLOGIC: Warm and dry. No generalized rash. NEUROLOGIC: Alert, oriented x 3, grossly nonfocal. PSYCHIATRIC: Cooperative, appropriate mood and affect. PIV looks okay. LABORATORY DATA: WBC 23.3, it was 26.7, hemoglobin 8.4, hematocrit 25.5, platelets 204. Sodium 143, potassium 3.8, chloride 111, bicarbonate 16, BUN 9, creatinine 1.0, glucose 72, lactate 0.9, total bilirubin 1.4, AST 21, ALT 50, alkaline phosphatase 129, total protein 5.5, albumin 2.1, lipase 44. Procalcitonin 3.58. UA: Large blood, large leukocyte esterase, greater than 40 wbc's. D-dimer 2.63. Fibrinogen 686. INR 1.4. IMAGING: Abdominal and pelvic CT as per HPI. IMPRESSION: 1. Fever, source appears genitourinary. 2. Leukocytosis. 3. Urinary tract infection with pyelonephritis. 4. H/O Nephrolithiasis. 5. Abnormal liver function tests with cholelithiasis. 6. Hypokalemia. 7. Acute kidney injury, likely from dehydration, resolved. 8. Asymmetric 2.5 cm left adnexal mass. RECOMMENDATIONS: 1. Discontinue ceftriaxone. 2. Start Zosyn. 3. Follow up labs and cultures. 4. PLUMBER PIPE FITTING has been consulted. 5. Continue supportive care. 6. The patient may need to be transferred to another facility if no improvement as Urology service is not available at this center. Discussed with nursing staff. Thank you for allowing me to participate in this patient's care. If you have any questions, do not hesitate to contact me. KD BRYSON MD DR: SALVADOR/indio JOB#: [id number] / [id number] YESSICA
[2020-07-06] MEDS: LACTOBACILLUS RHAMNOSUS GG 1 CAPSULE. PO SCH (21:00)
[2020-07-06] MEDS: ENOXAPARIN 40 MG/0.4 ML SYRINGE. SQ SCH (21:01)
[2020-07-07 03:00] VITALS: BP 111/68
[2020-07-07] MEDS: PIPERACILLIN/TAZOBACTAM 3.375 GM in IV NORMAL SALINE 50ML 50 ML IV SCH ×4 (05:33→23:57)
[2020-07-07] MEDS: ONDANSETRON PF 4 MG/2 ML VIAL. IV PRN ×3 (05:42→21:05)
[2020-07-07 07:00] VITALS: BP 124/81
[2020-07-07] MEDS: HYDROmorphone 2 MG/ML VIAL IVP PRN ×3 (07:15→20:25)
[2020-07-07] MEDS: LACTOBACILLUS RHAMNOSUS GG 1 CAPSULE. PO SCH ×2 (08:02→21:30)
[2020-07-07] MEDS: FAMOTIDINE 20 MG/2 ML VIAL IVP SCH ×2 (08:02→21:30)
[2020-07-07] MEDS: KETOROLAC 30 MG/ML VIAL. IVP PRN ×2 (08:02→15:48)
--- NOTE | 2020-07-07 10:01 | PDOC ---
Infectious Disease Note Subjective: Subjective Patient continues to have abdominal pain and dysuria Continues to have nausea Temperature max 103 Vital Signs: Vital Signs Vital Signs Date Time Temp Pulse Resp B/P (MAP) Pulse Ox O2 Delivery O2 Flow Rate FiO2 07/07/20 08:00 Room Air 07/07/20 07:15 20 07/07/20 07:00 98.1 97 124/81 (95) 94 98.1 Physical Exam: PHYSICAL EXAM GENERAL: Alert, oriented x 3, ambulant female, in no acute distress. HEENT: Normocephalic, atraumatic, anicteric. No thrush. Oral mucosa moist. NECK: Supple. No JVD. No lymphadenopathy. LUNGS: Clear bilaterally. No wheezing. HEART: S1, S2. Tachycardia. No gallops or murmurs. ABDOMEN: Soft, mild tenderness present in all 4 quadrants, more on the left lower quadrant, left flank, left upper quadrant, some over the right upper quadrant. No rebound. No guarding. BACK: Reveals normal curvature. Mild CVA tenderness on the left side. EXTREMITIES: No edema. No cyanosis. DERMATOLOGIC: Warm and dry. No generalized rash. NEUROLOGIC: Alert, oriented x 3, grossly nonfocal. PSYCHIATRIC: Cooperative, appropriate mood and affect. PIV looks okay. Medications: Inpatient Meds: Medications reviewed. Objective: Assessment: 1. Fever, source genitourinary. 2. Leukocytosis. 3. E Coli Urinary tract infection with pyelonephritis. 4. Nephrolithiasis. 5. Abnormal liver function tests with cholelithiasis. 6. Hypokalemia. 7. Acute kidney injury, likely from dehydration, resolved. 8. Asymmetric 2.5 cm left adnexal mass. Pelvic sono was negative for adnexal mass. Plan: Plan of Care 1. Continue Zosyn. 2. Follow-up urine cultures and blood cultures 3. Follow up labs 4. [employer]IC input noted 5. Continue supportive care. 6. The patient may need to be transferred to another facility if no improvement as Urology service is not available at this center. Discussed with nursing staff. KD BRYSON MD Jul 07, 2020 10:01
[2020-07-07 11:00] VITALS: BP 121/66
[2020-07-07] MEDS: IV NORMAL SALINE 1000ML BAG 1,000 ML IV SCH ×2 (11:08→20:54)
--- NOTE | 2020-07-07 13:58 | PDOC ---
[facility] PROGRESS NOTE Date of Service DOS: DATE: 07/07/20 TIME: 13:56 Chief Complaint Chief Complaint A/P: Left pyelonephritis - Left perinephric and renal edema as well as peripelvic and periureteral edema. No significant hydronephrosis. Rocephin ordered. toradol Asymmetric left lower lobe posterior basilar opacity adjacent of the diaphragm may be asymmetric atelectasis versus early lobar pneumonia. Cholelithiasis. Asymmetric 2.5 cm round soft tissue density left adnexa could be asymmetric positioning of the ovary versus an underlying mass - stone cutter consulted Sepsis - due to pyelonephritis MAHI - vasomotor nephropathy from sepsis History of Present Illness History of Present Illness Ms Zhang is a 39 yo romanian-speaking only who presented to ER due to left-sided flank pain with frequent urination for 10 days. she was seen by her doctor prescribed Bactrim DS. ct c/w acute pyelo, wbc 26.7 pos cva tenderness left lower lobe posterior basilar opacity adjacent of the diaphragm may be asymmetric atelectasis versus early lobar pneumonia. on ct Patient has taken this medication for 7 days did not get any better. //complains of more back pain and flank pain American speaking, history was taken through studio model the blue phone. Headache today. Fever and chills. Still having left flank pain. Some pelvic pain as well. 07/07/2020 No acute events overnight. Fever of 103 last night. Patient has distention her belly. Denies any nausea vomiting or constipation. We will continue with IV antibiotics and continue to observe. Patient's chart, labs, images were reviewed and discussed with RN Vitals/I&O Vitals/I&O: Vital Signs Date Time Temp Pulse Resp B/P (MAP) Pulse Ox O2 Delivery O2 Flow Rate FiO2 07/07/20 11:00 97.8 82 19 121/66 (84) 93 Room Air 97.8 I & O 07/06/20 07/06/20 07/07/20 15:00 23:00 07:00 Intake Total 100 ml 200 ml Balance 100 ml 200 ml Physical Exam Physical Exam: GENERAL: Alert, oriented x 3, ambulant female, in no acute distress. HEENT: Normocephalic, atraumatic, anicteric. No thrush. Oral mucosa moist. NECK: Supple. No JVD. No lymphadenopathy. LUNGS: Clear bilaterally. No wheezing. HEART: S1, S2. Tachycardia. No gallops or murmurs. ABDOMEN: Soft, mild tenderness present in all 4 quadrants, more on the left lower quadrant, left flank, left upper quadrant, some over the right upper quadrant. No rebound. No guarding. BACK: Reveals normal curvature. Mild CVA tenderness on the left side. EXTREMITIES: No edema. No cyanosis. DERMATOLOGIC: Warm and dry. No generalized rash. NEUROLOGIC: Alert, oriented x 3, grossly nonfocal. PSYCHIATRIC: Cooperative, appropriate mood and affect. PIV looks okay. General: Alert, Oriented X3, Cooperative Heart: Regular rate Abdomen: Normal bowel sounds, Soft, No masses, Other (Left CVA tenderness) Extremities: No clubbing, No cyanosis, No edema, Normal pulses Assessment and Plan Assessmemt and Plan Problems Medical Problems: (1) Acute pyelonephritis Status: Acute Goals of Care: Advance Care Planning: Total time spent [id number] with patient greater than 16 minutes in discussion with goals of care, comfort care, end-of-life care, pain management, code status Comment Review of Relevant I have reviewed the following items barb (where applicable) has been applied. Medications: Current Medications Medications (Trade) Dose Ordered Sig/Lan Route PRN Reason Start Time Stop Time Status Last Admin Dose Admin Lactobacillus Rhamnosus (Culturelle) 1 cap BID PO 07/06/20 21:00 07/07/20 08:02 Justifications for Admission General Conditions Poss tachycardia?: Yes Justification for admission: Patient has tachycardia (> 100 beats per minute) which is not readily corrected by appropriate treatment within 12 to 24 hours. Other justification for admit: SEPSIS Other Justification ALE CAT MD Jul 07, 2020 13:58
[2020-07-07 15:00] VITALS: BP 116/58
[2020-07-07 19:00] VITALS: BP 124/70
[2020-07-07] MEDS: ENOXAPARIN 40 MG/0.4 ML SYRINGE. SQ SCH (20:30)
[2020-07-07 23:00] VITALS: BP 143/84
[2020-07-08 03:00] VITALS: BP 147/72
[2020-07-08] MEDS: PIPERACILLIN/TAZOBACTAM 3.375 GM in IV NORMAL SALINE 50ML 50 ML IV SCH (05:44)
[2020-07-08] MEDS: IV NORMAL SALINE 1000ML BAG 1,000 ML IV SCH ×2 (06:17→16:30)
[2020-07-08] MEDS: ONDANSETRON PF 4 MG/2 ML VIAL. IV PRN (06:18)
[2020-07-08] MEDS: HYDROmorphone 2 MG/ML VIAL IVP PRN ×2 (06:20→14:11)
[2020-07-08 07:00] VITALS: BP_SYST 118; BP_SYST 141; BP_DIAS 54; BP_DIAS 63
--- NOTE | 2020-07-08 08:08 | PDOC ---
Infectious Disease Note Subjective: Subjective Patient feels better Abdominal pain and flank pain improved some nausea Afebrile last 24 hours Vital Signs: Vital Signs Vital Signs Date Time Temp Pulse Resp B/P (MAP) Pulse Ox O2 Delivery O2 Flow Rate FiO2 07/08/20 07:00 97.8 88 18 141/63 (89) 93 Room Air 97.8 Physical Exam: PHYSICAL EXAM GENERAL: Alert, oriented x 3, ambulant female, in no acute distress. HEENT: Normocephalic, atraumatic, anicteric. No thrush. Oral mucosa moist. NECK: Supple. No JVD. No lymphadenopathy. LUNGS: Clear bilaterally. No wheezing. HEART: S1, S2. Tachycardia. No gallops or murmurs. ABDOMEN: Soft, mild tenderness present in all 4 quadrants, more on the left lower quadrant, left flank, left upper quadrant, some over the right upper quadrant. No rebound. No guarding. BACK: Reveals normal curvature. Mild CVA tenderness on the left side. EXTREMITIES: No edema. No cyanosis. DERMATOLOGIC: Warm and dry. No generalized rash. NEUROLOGIC: Alert, oriented x 3, grossly nonfocal. PSYCHIATRIC: Cooperative, appropriate mood and affect. PIV looks okay. Medications: Inpatient Meds: Medications reviewed. Objective: Assessment: 1. Fever, source genitourinary. 2. Leukocytosis. 3. E Coli Urinary tract infection with pyelonephritis. 4. Nephrolithiasis. 5. Abnormal liver function tests with cholelithiasis. 6. Hypokalemia. 7. Acute kidney injury, likely from dehydration, resolved. 8. Asymmetric 2.5 cm left adnexal mass. Pelvic sono was negative for adnexal mass. Plan: Plan of Care 1. Change zosyn to ceftriaxone 2. Follow-up urine cultures and blood cultures 3. Follow up labs 4. SLOT FLOOR SUPERVISOR input noted 5. Continue supportive care. 6. The patient may need to be transferred to another facility if no improvement as Urology service is not available at this center. Discussed with nursing staff. KD BRYSON MD Jul 08, 2020 08:08
[2020-07-08] MEDS: KETOROLAC 30 MG/ML VIAL. IVP PRN ×2 (08:32→23:06)
[2020-07-08] MEDS: FAMOTIDINE 20 MG/2 ML VIAL IVP SCH ×2 (08:32→20:56)
[2020-07-08] MEDS: LACTOBACILLUS RHAMNOSUS GG 1 CAPSULE. PO SCH ×2 (08:33→20:51)
[2020-07-08 09:01] LABS: BASO # 0.1 x10^3/uL (0.0-0.2); BASO % 1 % (0-3); EOS # 0.1 x10^3/uL (0.0-0.7); EOS % 1 % (0-3); HEMATOCRIT 26.6 % (36.0-47.0); HEMOGLOBIN 8.7 g/dL (12.0-15.5); LYMPH % 15 % (24-48); MEAN CORPUSCULAR HEMOGLOBIN 26 pg (25-35); MEAN CORPUSCULAR HGB CONC 33 g/dL (31-37); MEAN CORPUSCULAR VOLUME 80 fL (79-100); MONO # 0.9 x10^3/uL (0.0-1.1); MONO % 14 % (0-9); NEUT # 4.6 x10^3/uL (1.8-7.7); NEUT % 68 % (31-73); PLATELET COUNT 282 x10^3/uL (140-400); RED BLOOD COUNT 3.32 x10^6/uL (3.50-5.40); RED CELL DISTRIBUTION WIDTH 16.7 % (11.5-14.5); WHITE BLOOD COUNT 6.7 x10^3/uL (4.0-11.0)
[2020-07-08 09:11] LABS: CALCIUM 7.7 mg/dL (8.5-10.1); CREATININE 0.8 mg/dL (0.6-1.0); GFR 79.9; MAGNESIUM 1.8 mg/dL (1.8-2.4); POTASSIUM 3.6 mmol/L (3.5-5.1)
--- NOTE | 2020-07-08 09:28 | NUR ---
SW following. Discussed with RN, pt from home with family, room air, regular diet. Pt currently on IV abx. If no improvement, may need inpatient transfer due to [facility] not having urology. Med Assist screened pt - not eligible for any programs at this time. SW will continue to follow.
[2020-07-08 11:00] VITALS: BP 141/73
[2020-07-08 11:44] LABS: % BANDS 7 % (0-9); % BASOS 3 % (0-3); % EOS 2 % (0-5); % LYMPHS 12 % (24-48); % MONOS 10 % (0-10); % SEGS 66 % (35-66)
[2020-07-08 11:45] LABS: PLT ESTIMATE ADEQUATE (ADEQUATE)
[2020-07-08] MEDS: cefTRIAXone IV Push 2 GM VIAL. IVP SCH (12:28)
[2020-07-08 15:00] VITALS: BP 152/79
--- NOTE | 2020-07-08 17:50 | PDOC ---
[facility] PROGRESS NOTE Date of Service DOS: DATE: 07/08/20 TIME: 17:49 Chief Complaint Chief Complaint A/P: Left pyelonephritis - Left perinephric and renal edema as well as peripelvic and periureteral edema. No significant hydronephrosis. Rocephin ordered. toradol Asymmetric left lower lobe posterior basilar opacity adjacent of the diaphragm may be asymmetric atelectasis versus early lobar pneumonia. Cholelithiasis. Asymmetric 2.5 cm round soft tissue density left adnexa could be asymmetric positioning of the ovary versus an underlying mass - computer networking instructor adjunct consulted Sepsis - due to pyelonephritis MAHI - vasomotor nephropathy from sepsis History of Present Illness History of Present Illness Ms Zhang is a 39 yo greenlandic-speaking only who presented to ER due to left-sided flank pain with frequent urination for 10 days. she was seen by her doctor prescribed Bactrim DS. ct c/w acute pyelo, wbc 26.7 pos cva tenderness left lower lobe posterior basilar opacity adjacent of the diaphragm may be asymmetric atelectasis versus early lobar pneumonia. on ct Patient has taken this medication for 7 days did not get any better. //complains of more back pain and flank pain Turkmen speaking, history was taken through special procedure technologist the blue phone. Headache today. Fever and chills. Still having left flank pain. Some pelvic pain as well. 07/07/2020 No acute events overnight. Fever of 103 last night. Patient has distention her belly. Denies any nausea vomiting or constipation. We will continue with IV antibiotics and continue to observe. Patient's chart, labs, images were reviewed and discussed with RN 07/08/20 No acute events overnight and afebrile. ABD pain, distention and nausea has improved. Patient's chart, labs, images were reviewed and discussed with RN Vitals/I&O Vitals/I&O: Vital Signs Date Time Temp Pulse Resp B/P (MAP) Pulse Ox O2 Delivery O2 Flow Rate FiO2 07/08/20 15:00 97.6 78 16 152/79 (103) 95 Room Air 97.6 I & O 07/07/20 07/07/20 07/08/20 15:00 23:00 07:00 Intake Total 100 ml 200 ml 400 ml Output Total 1 ml Balance 100 ml 199 ml 400 ml Physical Exam Physical Exam: GENERAL: Alert, oriented x 3, ambulant female, in no acute distress. HEENT: Normocephalic, atraumatic, anicteric. No thrush. Oral mucosa moist. NECK: Supple. No JVD. No lymphadenopathy. LUNGS: Clear bilaterally. No wheezing. HEART: S1, S2. Tachycardia. No gallops or murmurs. ABDOMEN: Soft, mild tenderness present in all 4 quadrants, more on the left lower quadrant, left flank, left upper quadrant, some over the right upper quadr ant. No rebound. No guarding. BACK: Reveals normal curvature. Mild CVA tenderness on the left side. EXTREMITIES: No edema. No cyanosis. DERMATOLOGIC: Warm and dry. No generalized rash. NEUROLOGIC: Alert, oriented x 3, grossly nonfocal. PSYCHIATRIC: Cooperative, appropriate mood and affect. PIV looks okay. General: Alert, Oriented X3, Cooperative Heart: Regular rate Abdomen: Normal bowel sounds, Soft, No masses, Other (Left CVA tenderness) Extremities: No clubbing, No cyanosis, No edema, Normal pulses Labs Labs: Laboratory Tests Test 07/08/20 08:15 White Blood Count 6.7 x10^3/uL (4.0-11.0) Red Blood Count 3.32 x10^6/uL (3.50-5.40) Hemoglobin 8.7 g/dL (12.0-15.5) Hematocrit 26.6 % (36.0-47.0) Mean Corpuscular Volume 80 fL (79-100) Mean Corpuscular Hemoglobin 26 pg (25-35) Mean Corpuscular Hemoglobin Concent 33 g/dL (31-37) Red Cell Distribution Width 16.7 % (11.5-14.5) Platelet Count 282 x10^3/uL (140-400) Neutrophils (%) (Auto) 68 % (31-73) Lymphocytes (%) (Auto) 15 % (24-48) Monocytes (%) (Auto) 14 % (0-9) Eosinophils (%) (Auto) 1 % (0-3) Basophils (%) (Auto) 1 % (0-3) Neutrophils # (Auto) 4.6 x10^3/uL (1.8-7.7) Lymphocytes # (Auto) 1.0 x10^3/uL (1.0-4.8) Monocytes # (Auto) 0.9 x10^3/uL (0.0-1.1) Eosinophils # (Auto) 0.1 x10^3/uL (0.0-0.7) Basophils # (Auto) 0.1 x10^3/uL (0.0-0.2) Segmented Neutrophils % 66 % (35-66) Band Neutrophils % 7 % (0-9) Lymphocytes % 12 % (24-48) Monocytes % 10 % (0-10) Eosinophils % 2 % (0-5) Basophils % 3 % (0-3) Platelet Estimate Adequate (ADEQUATE) Sodium Level 143 mmol/L (136-145) Potassium Level 3.6 mmol/L (3.5-5.1) Chloride Level 108 mmol/L (98-107) Carbon Dioxide Level 21 mmol/L (21-32) Anion Gap 14 (6-14) Blood Urea Nitrogen 9 mg/dL (7-20) Creatinine 0.8 mg/dL (0.6-1.0) Estimated GFR (Cockcroft-Gault) 79.9 Glucose Level 87 mg/dL (70-99) Calcium Level 7.7 mg/dL (8.5-10.1) Magnesium Level 1.8 mg/dL (1.8-2.4) Assessment and Plan Assessmemt and Plan Problems Medical Problems: (1) Acute pyelonephritis Status: Acute Comment Review of Relevant I have reviewed the following items barb (where applicable) has been applied. Medications: Current Medications Medications (Trade) Dose Ordered Sig/Lan Route PRN Reason Start Time Stop Time Status Last Admin Dose Admin Ceftriaxone Sodium (Rocephin) 2 gm Q24H IVP 07/08/20 11:00 07/08/20 12:28 Justifications for Admission General Conditions Poss tachycardia?: Yes Justification for admission: Patient has tachycardia (> 100 beats per minute) which is not readily corrected by appropriate treatment within 12 to 24 hours. Other justification for admit: SEPSIS Other Justification ALE CAT MD Jul 08, 2020 17:50
[2020-07-08 19:25] VITALS: BP 149/81
[2020-07-08] MEDS: ENOXAPARIN 40 MG/0.4 ML SYRINGE. SQ SCH (20:50)
[2020-07-08 23:10] VITALS: BP 139/81
[2020-07-09] MEDS: IV NORMAL SALINE 1000ML BAG 1,000 ML IV SCH ×2 (02:35→11:29)
[2020-07-09 03:01] VITALS: BP 128/71
[2020-07-09] MEDS: KETOROLAC 30 MG/ML VIAL. IVP PRN (06:22)
[2020-07-09] MEDS: ONDANSETRON PF 4 MG/2 ML VIAL. IV PRN (06:37)
[2020-07-09 07:00] VITALS: BP 154/78
[2020-07-09] MEDS: FAMOTIDINE 20 MG/2 ML VIAL IVP SCH (08:36)
[2020-07-09] MEDS: LACTOBACILLUS RHAMNOSUS GG 1 CAPSULE. PO SCH (08:36)
[2020-07-09] MEDS: HYDROmorphone 2 MG/ML VIAL IVP PRN (08:36)
--- NOTE | 2020-07-09 09:28 | PDOC ---
Infectious Disease Note Subjective: Subjective Patient without complaints Afebrile for last 48 hours Ready for discharge per team Vital Signs: Vital Signs Vital Signs Date Time Temp Pulse Resp B/P (MAP) Pulse Ox O2 Delivery O2 Flow Rate FiO2 07/09/20 09:26 Room Air 07/09/20 07:00 98.3 65 18 154/78 (103) 95 98.3 Physical Exam: PHYSICAL EXAM GENERAL: Alert, oriented x 3, ambulant female, in no acute distress. HEENT: Normocephalic, atraumatic, anicteric. No thrush. Oral mucosa moist. NECK: Supple. No JVD. No lymphadenopathy. LUNGS: Clear bilaterally. No wheezing. HEART: S1, S2. Tachycardia. No gallops or murmurs. ABDOMEN: Soft, mild tenderness present in all 4 quadrants, more on the left lower quadrant, left flank, left upper quadrant, some over the right upper quadrant. No rebound. No guarding. BACK: Reveals normal curvature. Mild CVA tenderness on the left side. EXTREMITIES: No edema. No cyanosis. DERMATOLOGIC: Warm and dry. No generalized rash. NEUROLOGIC: Alert, oriented x 3, grossly nonfocal. PSYCHIATRIC: Cooperative, appropriate mood and affect. PIV looks okay. Medications: Inpatient Meds: Medications reviewed. Objective: Assessment: 1. Fever, source genitourinary. Resolved 2. Leukocytosis. Resolved 3. E Coli Urinary tract infection with pyelonephritis. 4. Nephrolithiasis. 5. Abnormal liver function tests with cholelithiasis. 6. Hypokalemia. 7. Acute kidney injury, likely from dehydration, resolved. 8. Asymmetric 2.5 cm left adnexal mass. Pelvic sono was negative for adnexal mass. Plan: Plan of Care Okay to discharge home on cefdinir for 10 days Prescription in chart Discussed with KD Rosales MD Jul 09, 2020 09:28
--- NOTE | 2020-07-09 09:34 | NUR ---
SW following. Discussed with RN, pt from home with family, room air, regular diet, C-diff negative. RN anticipates discharge home today. No Medicaid qualifying factors at this time per Med Assist. SW will continue to follow.
[2020-07-09 11:00] VITALS: BP 140/68
[2020-07-09] MEDS: cefTRIAXone IV Push 2 GM VIAL. IVP SCH (11:00)
--- NOTE | 2020-07-09 12:04 | DISCH ---
DISCHARGE INSTRUCTIONS Condition on Discharge Condition on Discharge: Stable Activity After Discharge Activity Instructions for Disc: Activity as tolerated Exercise Instruction after Dis: Walk 30 min, 3 x per week Driving Instructions after Dis: Do not drive today Diet after Discharge Diet after Discharge: Cardiac Follow-Up Follow up with: PCP within 2 weeks Follow Up With: ID as needed ALE CAT MD Jul 09, 2020 12:04
--- NOTE | 2020-07-09 12:35 | NUR ---
Discharge Note: PT DISCHARGED HOME WITH SELF CARE. PT LEFT FACILITY VIA PRIVATE VEHICLE WITH AT 1235. PT STABLE AND ALERT UPON DISCHARGE. PT PIV REMOVED FROM R AC WITHOUT COMPLICATIONS, BANDAGE APPLIED. PT EDUCATED VIA STAFF TRANSLATING ABOUT DISCHARGE MEDICATIONS, DISCHARGE INSTRUCTIONS, AND FOLLOW-UP INSTRUCTIONS. ALL QUESTIONS ANSWERED PRIOR TO DISCHARGE. PT LEFT WITH ALL PERSONAL BELONGINGS. CANDI NICE Discharge instructions and discharge home medications reviewed with Patient and a copy given. All questions have been answered and understanding verbalized.
[2020-07-09] MEDS ORDERED: OXYC5CAP PO (14:30)
--- NOTE | 2020-07-11 21:54 | PDOC3 ---
[facility]-Discharge Summary Date of Admission: Date of Admission: Jul 05, 2020 Date of Discharge: Date of Discharge: Jul 09, 2020 Discharge Diagnosis: Discharge Diagnosis: Left pyelonephritis - Left perinephric and renal edema as well as peripelvic and periureteral edema. No significant hydronephrosis. Rocephin ordered. toradol Asymmetric left lower lobe posterior basilar opacity adjacent of the diaphragm may be asymmetric atelectasis versus early lobar pneumonia. Cholelithiasis. Asymmetric 2.5 cm round soft tissue density left adnexa could be asymmetric positioning of the ovary versus an underlying mass - physicist light and optics consulted Sepsis - due to pyelonephritis MAHI - vasomotor nephropathy from sepsis Consults: Consults: ID recs: Okay to discharge home on cefdinir for 10 days Prescription in chart Hospital Course: Hospital Course: 39 yo australian-speaking only who presented to ER due to left-sided flank pain with frequent urination for 10 days. she was seen by her doctor prescribed Bactrim DS. ct c/w acute pyelo, wbc 26.7 pos cva tenderness left lower lobe posterior basilar opacity adjacent of the diaphragm may be asymmetric atelectasis versus early lobar pneumonia. on ct Patient has taken this medication for 7 days did not get any better. //complains of more back pain and flank pain Greek speaking, history was taken through plating tank operator apprentice the blue phone. Headache today. Fever and chills. Still having left flank pain. Some pelvic pain as well. 07/07/2020 No acute events overnight. Fever of 103 last night. Patient has distention her belly. Denies any nausea vomiting or constipation. We will continue with IV antibiotics and continue to observe. Patient's chart, labs, images were reviewed and discussed with RN 07/08/20 No acute events overnight and afebrile. ABD pain, distention and nausea has improved. Patient's chart, labs, images were reviewed and discussed with RN By day of discharge, pt was clinically stable and ready for discharge. Rest of hospital course was uneventful Disposition: Disposition/Orders: D/C to Home Activity: Activity: Resume previous activity Diet: Diet: Regular Medications: Home Meds No Active Prescriptions or Reported Meds No Active Prescriptions or Reported Meds Total Time: Total Time: Total time spent was 35 minutes in preparing scripts, discharge planning with SW and RN, and preparing this discharge summary. Patient seen and examined on day of discharge. Justicifation of Admission Dx: Justifications for Admission: Justification of Admission Dx: Yes Sepsis: [id number] Not Responding ALE CAT MD Jul 11, 2020 21:54
== END 2020-07-09 12:35 | disposition home or self-care (01) | DRG 871 ==
LOC: EDBD 10:49 → ER 10:49 → ED HOLD 17:43 → 4 NORTH 20:12
PROVIDERS: ADMIT Family Medicine; ATTEND Family Medicine
DX: A41.9 Sepsis, unspecified organism (principal); N17.0 Acute kidney failure with tubular necrosis; N10 Acute pyelonephritis; F17.210 Nicotine dependence, cigarettes, uncomplicated; R59.0 Localized enlarged lymph nodes; K80.20 Calculus of gallbladder without cholecystitis without obstruction; E87.6 Hypokalemia; D64.9 Anemia, unspecified; E86.0 Dehydration; N20.0 Calculus of kidney; B96.20 Unspecified Escherichia coli [E. coli] as the cause of diseases classified elsewhere; N26.1 Atrophy of kidney (terminal); R94.5 Abnormal results of liver function studies; Z98.51 Tubal ligation status; Z87.442 Personal history of urinary calculi; Z87.440 Personal history of urinary (tract) infections; Z82.5 Family history of asthma and other chronic lower respiratory diseases; Z82.49 Family history of ischemic heart disease and other diseases of the circulatory system
CPT/HCPCS: 36415; 74176; 76700; 76856; 80048; 80053; 81001; 81025; 83605; 83690; 83735; 84145; 85007; 85025; 85379; 85384; 85610; 85730; 87040; 87077; 87086; 87186; 87493; 96361; 96374; 96375; 99285; J0696; J1170; J1650; J1885; J2270; J2405; J2543; J3490; J7030; P9045; Q9966; G0378

== ENCOUNTER 2020-09-29 00:26 | Emergency (ER) | payer SELFPAY ==
[~2020-09-29] VITALS: Ht 152.4 cm; Wt 60.0 kg
[~2020-09-29 00:26] MED LIST: OXYC5CAP PO
[2020-09-29] MEDS ORDERED: ONDANSETRON PF 4 MG/2 ML VIAL. IVP ONE (01:15)
[2020-09-29] MEDS ORDERED: fentaNYL PF VIAL 100 MCG/2 ML VIAL IVP ONE (01:15)
--- NOTE | 2020-09-29 01:19 | ED.ADGEN ---
Past Medical History Past Medical History: No Pertinent History Past Surgical History: Tubal ligation Smoking Status: Current Every Day Smoker Alcohol Use: None General Adult EDM: Chief Complaint: ABDOMINAL PAIN HPI: HPI: Patient is a 40 year old female coming in for 5-6 episodes of emesis and right upper quadrant pain for the past day. Patient denies any diarrhea or fever. Denies any past medical history other than a BTL. Denies any tobacco alcohol or drugs. She still has her gallbladder. Denies any cough or chest pain, states she is short of breath when the pain is worse. Review of Systems: Review of Systems: All other systems within normal limits except for as noted in the HPI Current Medications: Current Medications Medications (Trade) Dose Ordered Sig/Lan Start Time Stop Time Status Last Admin Dose Admin Dicyclomine HCl (Bentyl) 10 mg 1X ONCE 09/29/20 04:15 09/29/20 04:16 DC Fentanyl Citrate (Fentanyl 2ml Vial) 75 mcg 1X ONCE 09/29/20 01:15 09/29/20 01:16 DC 09/29/20 01:59 75 MCG Ondansetron HCl (Zofran) 4 mg 1X ONCE 09/29/20 01:15 09/29/20 01:16 DC 09/29/20 02:00 4 MG Allergies: Allergies: Allergies Coded Allergies Type Severity Reaction Last Updated Verified No Known Drug Allergies 07/05/20 No Physical Exam: PE: Constitutional: Well developed, well nourished, no acute distress, non-toxic appearance. [] HENT: Normocephalic, atraumatic, bilateral external ears normal, nose normal. [] Eyes: PERRLA, conjunctiva normal, no discharge. [] Neck: No rigidity, supple, no stridor. [] Cardiovascular: Regular rate and rhythm, brisk cap refill [] Lungs & Thorax: Non labored symmetric respirations, no tachypnea or respiratory distress [] Abdomen: Soft, nondistended, right upper quadrant pain, positive Loera sign. Skin: Warm, dry, no erythema, no rash. [] Back: Unremarkable Extremities: No deformities, range of motion grossly intact, no lower extremity edema [] Neurologic: Alert and oriented X 3, no focal deficits noted. [] Psychologic: Affect normal, judgement normal, mood normal. [] Current Patient Data: Labs: Laboratory Tests Test 09/29/20 00:45 09/29/20 00:59 09/29/20 01:00 Urine Collection Type Unknown Urine Color Yellow Urine Clarity Clear Urine pH 7.0 (<5.0-8.0) Urine Specific [place] 1.025 (1.000-1.030) Urine Protein >=300 mg/dL (NEG-TRACE) Urine Glucose (UA) Negative mg/dL (NEG) Urine Ketones (Stick) Trace mg/dL (NEG) Urine Blood Moderate (NEG) Urine Nitrite Negative (NEG) Urine Bilirubin Negative (NEG) Urine Urobilinogen Dipstick 0.2 mg/dL (0.2 mg/dL) Urine Leukocyte Esterase Negative (NEG) Urine RBC 20-40 /HPF (0-2) Urine WBC 1-4 /HPF (0-4) Urine Squamous Epithelial Cells Many /LPF Urine Bacteria Few /HPF (0-FEW) Urine Mucus Mod /LPF POC Urine HCG, Qualitative Hcg negative (Negative) White Blood Count 9.4 x10^3/uL (4.0-11.0) Red Blood Count 3.91 x10^6/uL (3.50-5.40) Hemoglobin 10.4 g/dL (12.0-15.5) L Hematocrit 31.2 % (36.0-47.0) L Mean Corpuscular Volume 80 fL (79-100) Mean Corpuscular Hemoglobin 27 pg (25-35) Mean Corpuscular Hemoglobin Concent 33 g/dL (31-37) Red Cell Distribution Width 15.1 % (11.5-14.5) H Platelet Count 350 x10^3/uL (140-400) Neutrophils (%) (Auto) 78 % (31-73) H Lymphocytes (%) (Auto) 15 % (24-48) L Monocytes (%) (Auto) 6 % (0-9) Eosinophils (%) (Auto) 0 % (0-3) Basophils (%) (Auto) 1 % (0-3) Neutrophils # (Auto) 7.3 x10^3/uL (1.8-7.7) Lymphocytes # (Auto) 1.4 x10^3/uL (1.0-4.8) Monocytes # (Auto) 0.6 x10^3/uL (0.0-1.1) Eosinophils # (Auto) 0.0 x10^3/uL (0.0-0.7) Basophils # (Auto) 0.1 x10^3/uL (0.0-0.2) Sodium Level 139 mmol/L (136-145) Potassium Level 3.8 mmol/L (3.5-5.1) Chloride Level 103 mmol/L (98-107) Carbon Dioxide Level 27 mmol/L (21-32) Anion Gap 9 (6-14) Blood Urea Nitrogen 15 mg/dL (7-20) Creatinine 0.9 mg/dL (0.6-1.0) Estimated GFR (Cockcroft-Gault) 69.3 BUN/Creatinine Ratio 17 (6-20) Glucose Level 132 mg/dL (70-99) H Calcium Level 8.7 mg/dL (8.5-10.1) Total Bilirubin 0.3 mg/dL (0.2-1.0) Aspartate Amino Transferase (AST) 54 U/L (15-37) H Alanine Aminotransferase (ALT) 108 U/L (14-59) H Alkaline Phosphatase 96 U/L (46-116) Total Protein 7.6 g/dL (6.4-8.2) Albumin 3.8 g/dL (3.4-5.0) Albumin/Globulin Ratio 1.0 (1.0-1.7) Lipase 58 U/L (73-393) L Laboratory Tests 09/29/20 01:00 Laboratory Tests 09/29/20 01:00 Vital Signs: Vital Signs Date Time Temp Pulse Resp B/P (MAP) Pulse Ox O2 Delivery O2 Flow Rate FiO2 09/29/20 02:00 80 20 142/88 (106) 100 Room Air 09/29/20 01:02 98.1 98.1 EKG: EKG: [] Heart Score: C/O Chest Pain: No Risk Factors: Risk Factors: DM, Current or recent (<one month) smoker, HTN, HLP, family history of CAD, obesity. Risk Scores: Score 0 - 3: 2.5% MACE over next 6 weeks - Discharge Home Score 4 - 6: 20.3% MACE over next 6 weeks - Admit for Clinical Observation Score 7 - 10: 72.7% MACE over next 6 weeks - Early Invasive Strategies Radiology/Procedures: Radiology/Procedures: [address] [place] [address] IMAGING REPORT Signed PATIENT: CRISTIANA NICE ACCOUNT: [id number] : 1980 LOCATION: ER AGE: 40 SEX: F EXAM STATUS: REG ER ORD. PHYSICIAN: BILL DUNCAN MD REASON: RUQ pain, hematuria, stone study PROCEDURE: CT ABDOMEN PELVIS WO CONTRAST INDICATION: Reason: RUQ pain, hematuria, stone study / Spl. Instructions: / History: . COMPARISON: July 05, 2020 TECHNIQUE: Axial CT images obtained through the abdomen and pelvis without contrast. One or more of the following individualized dose reduction techniques were utilized for this examination: 1. Automated exposure control; 2. Adjustment of the mA and/or kV according to patient size; 3. Use of iterative reconstruction technique. FINDINGS: There are some nodular opacities at the lung bases. Abdominal aorta is not aneurysmal. No intrahepatic bile duct dilation. The gallbladder is distended with suspected stones and sludge in the lumen. No peripancreatic fluid collection. Spleen unremarkable. Lobulated appearance of the bilateral kidneys with the left kidney small in size compared to the right. Nonobstructive left renal stones. The urinary bladder is partially distended. Uterus is visualized. No periappendiceal inflammatory changes. Appendix measures up to about 6 to 7 millimeter. No dilated loops of bowel to suggest obstruction. Small fat-containing umbilical hernia. IMPRESSION: * Gallbladder is distended with suspected stones within the lumen. Correlate with symptoms and if further evaluation is desired ultrasound could further assess. * Lobulated appearance of the bilateral kidneys again seen as well as nonobstructive left renal stone. Mild prominence of the right ureter. * The appendix is borderline in size but there is no adjacent inflammatory changes seen therefore this does not fulfill all of the criteria for appendicitis. * Patchy nodular opacities at the lung bases which could be infectious or inflammatory in nature but follow-up could be obtained to ensure that these appropriately resolves to exclude less common neoplastic causes Electronically signed by: Roderick Concepcion MD (09/29/2020 3:26 AM) [id number] DICTATED and SIGNED BY: RODERICK CONCEPCION MD DATE: 09/29/20 [id number] [] [address] [place] [address] IMAGING REPORT Signed PATIENT: CRISTIANA NICE ACCOUNT: [id number] : 1980 LOCATION: ER AGE: 40 SEX: F EXAM STATUS: REG ER ORD. PHYSICIAN: BILL DUNCAN MD REASON: ruq pain PROCEDURE: ABDOMEN LTD INDICATION : Reason: ruq pain / Spl. Instructions: / History: COMPARISON: July 05, 2020 TECHNIQUE: Multiple ultrasound images obtained through the abdomen in grayscale and color. FINDINGS: Pancreas: Limited visualization secondary to overlying structures obscuring Liver: Mildly echogenic Gallbladder: Stones are seen within as well as wall thickening and pain to transducer pressure. Wall is 5 mm. Gallbladder is dilated. IVC: Partially distended at level of liver. Common Bile Duct: Not dilated. Right Kidney: No hydronephrosis. IMPRESSION: * Gallbladder is dilated with stone seen within as well as gallbladder wall thickening. Causes such as cholecystitis could have this appearance but if unclear clinically nuclear hepatobiliary scan could provide additional information. Electronically signed by: Roderick Concepcion MD (09/29/2020 2:59 AM) [id number] DICTATED and SIGNED BY: RODERICK CONCEPCION MD DATE: 09/29/20 [id number] Course & Med Decision Making: Course & Med Decision Making Pertinent Labs and Imaging studies reviewed. (See chart for details) Pain controlled and patient tolerating p.o. Discussed follow-up and low-fat diet. Discussed return precautions. Gallbladder appearance is similar to previous scan in June. No leukocytosis or elevated LFTs. [] Dragon Disclaimer: Dragon Disclaimer: This electronic medical record was generated, in whole or in part, using a voice recognition dictation system. Departure Departure Impression: Primary Impression: Cholelithiasis Disposition: HOME / SELF CARE / HOMELESS Condition: STABLE Referrals: NO PCP (PCP) Patient Instructions: Cholelithiasis, Fat and Cholesterol Control Diet Additional Instructions: Follow-up with one of the clinics her surgeon on pamphlets provided. Follow a low-fat diet. Use medications as needed for gallbladder pain. Return to emergency department if you are having intractable pain, not able to hold your medications, or having fevers associated with right upper abdomen pain. Scripts Hydrocodone Bit/Acetaminophen (HYDROCODONE-APAP 5-325 ) 1 Tab Tablet 1 TAB PO PRN Q6HRS PRN for PAIN for 3 Days, #10 TAB 0 Refills Prov: BILL DUNCAN MD 09/29/20 Dicyclomine Hcl (DICYCLOMINE HCL) 20 Mg Tablet 1 TAB PO TID PRN for ABDOMINAL PAIN for 10 Days, #30 TAB 1 Refill Prov: BILL DUNCAN MD 09/29/20 Ondansetron (ONDANSETRON ODT) 4 Mg Tab.rapdis 1 TAB PO PRN Q6-8HRS PRN for NAUSEA for 5 Days, #16 TAB Prov: BILL DUNCAN MD 09/29/20 BILL DUNCAN MD Sep 29, 2020 01:18
[2020-09-29 01:30] LABS: BILIRUBIN,URINE NEGATIVE (NEG); CLARITY,URINE CLEAR; COLOR,URINE YELLOW; NITRITE,URINE NEGATIVE (NEG); PROTEIN,URINE >=300 mg/dL (NEG-TRACE); UROBILINOGEN,URINE 0.2 mg/dL (0.2 mg/dL)
[2020-09-29 01:31] LABS: BASO # 0.1 x10^3/uL (0.0-0.2); BASO % 1 % (0-3); EOS % 0 % (0-3); HEMATOCRIT 31.2 % (36.0-47.0); HEMOGLOBIN 10.4 g/dL (12.0-15.5); LYMPH # 1.4 x10^3/uL (1.0-4.8); LYMPH % 15 % (24-48); MEAN CORPUSCULAR HEMOGLOBIN 27 pg (25-35); MEAN CORPUSCULAR HGB CONC 33 g/dL (31-37); MEAN CORPUSCULAR VOLUME 80 fL (79-100); MONO # 0.6 x10^3/uL (0.0-1.1); MONO % 6 % (0-9); NEUT # 7.3 x10^3/uL (1.8-7.7); NEUT % 78 % (31-73); PLATELET COUNT 350 x10^3/uL (140-400); RED BLOOD COUNT 3.91 x10^6/uL (3.50-5.40); RED CELL DISTRIBUTION WIDTH 15.1 % (11.5-14.5); WHITE BLOOD COUNT 9.4 x10^3/uL (4.0-11.0)
[2020-09-29 01:36] LABS: BACTERIA,URINE FEW /HPF (0-FEW); RBC,URINE 20-40 /HPF (0-2)
[2020-09-29 01:36] LABS: CALCIUM 8.7 mg/dL (8.5-10.1); CREATININE 0.9 mg/dL (0.6-1.0); GFR 69.3; POTASSIUM 3.8 mmol/L (3.5-5.1)
[2020-09-29 01:42] LABS: ALBUMIN 3.8 g/dL (3.4-5.0); TOTAL BILIRUBIN 0.3 mg/dL (0.2-1.0); TOTAL PROTEIN 7.6 g/dL (6.4-8.2)
--- NOTE | 2020-09-29 03:02 | RAD ---
INDICATION : Reason: ruq pain / Spl. Instructions: / History: COMPARISON: July 05, 2020 TECHNIQUE: Multiple ultrasound images obtained through the abdomen in grayscale and color. FINDINGS: Pancreas: Limited visualization secondary to overlying structures obscuring Liver: Mildly echogenic Gallbladder: Stones are seen within as well as wall thickening and pain to transducer pressure. Wall is 5 mm. Gallbladder is dilated. IVC: Partially distended at level of liver. Common Bile Duct: Not dilated. Right Kidney: No hydronephrosis. IMPRESSION: * Gallbladder is dilated with stone seen within as well as gallbladder wall thickening. Causes such as cholecystitis could have this appearance but if unclear clinically nuclear hepatobiliary scan cou ld provide additional information. Electronically signed by: David Carrington MD (09/29/2020 2:59 AM) [id number]
--- NOTE | 2020-09-29 03:29 | RAD ---
INDICATION: Reason: RUQ pain, hematuria, stone study / Spl. Instructions: / History: . COMPARISON: July 05, 2020 TECHNIQUE: Axial CT images obtained through the abdomen and pelvis without contrast. One or more of the following individualized dose reduction techniques were utilized for this examinat ion: 1. Automated exposure control; 2. Adjustment of the mA and/or kV according to patient size; 3 . Use of iterative reconstruction technique. FINDINGS: There are some nodular opacities at the lung bases. Abdominal aorta is not aneurysmal. No intrahepatic bile duct dilation. The gallbladder is distended with suspected stones and sludge in the lumen. No peripancreatic fluid collection. Spleen unremarkable. Lobulated appearance of the bilateral kidneys with the left kidney small in size compared to the righ t. Nonobstructive left renal stones. The urinary bladder is partially distended. Uterus is visualized. No periappendiceal inflammatory changes. Appendix measures up to about 6 to 7 millimeter. No dilated loops of bowel to suggest obstruction. Small fat-containing umbilical hernia. IMPRESSION: * Gallbladder is distended with suspected stones within the lumen. Correlate with symptoms and if fu rther evaluation is desired ultrasound could further assess. * Lobulated appearance of the bilateral kidneys again seen as well as nonobstructive left renal ston e. Mild prominence of the right ureter. * The appendix is borderline in size but there is no adjacent inflammatory changes seen therefore th is does not fulfill all of the criteria for appendicitis. * Patchy nodular opacities at the lung bases which could be infectious or inflammatory in nature but follow-up could be obtained to ensure that these appropriately resolves to exclude less common neopl astic causes Electronically signed by: David Carrington MD (09/29/2020 3:26 AM) [id number]
[2020-09-29] MEDS ORDERED: DICYCLOMINE HCL 10 MG CAPSULE PO ONE (04:15)
[2020-09-29] MEDS ORDERED: ONDA4TAB12 PO (04:25)
[2020-09-29] MEDS ORDERED: DICY20TA3 PO (04:25)
[2020-09-29] MEDS ORDERED: HYDR-2761 PO (04:25)
[2020-09-29 04:45] VITALS: BP 127/47
== END 2020-09-29 04:45 | disposition home or self-care (01) ==
LOC: ER 00:26
DX: K80.20 Calculus of gallbladder without cholecystitis without obstruction (principal); F17.200 Nicotine dependence, unspecified, uncomplicated; Z98.51 Tubal ligation status
CPT/HCPCS: 36415; 74176; 76705; 80053; 81001; 81025; 83690; 85025; 96374; 96375; 99285; J2405; J3010